=== PATIENT | female | born 1950 | race African-American/Black ===

== ENCOUNTER 2018-07-08 11:31 | Inpatient (IN) | payer OTHER ==
[~2018-07-08] VITALS: Ht 154.9 cm; Wt 73.0 kg
[2018-07-08] VITALS (11 sets, daily range): BP systolic 131–187; BP diastolic 56–103
[2018-07-08 12:04] LABS: HEMATOCRIT 24.7 % (37.0-47.0); HEMOGLOBIN 7.9 G/DL (12.0-16.0); MEAN CORPUSCULAR VOLUME 88 FL (80-99); PLATELET COUNT 276 K/UL (150-450); RED CELL DISTRIBUTION WIDTH 14.6 % (11.6-14.8); WHITE BLOOD COUNT 14.5 K/UL (4.8-10.8)
[2018-07-08 12:18] LABS: ANION GAP 11 mmol/L (5-15); BLOOD UREA NITROGEN 41 mg/dL (7-18); CALCIUM 8.4 MG/DL (8.5-10.1); CARBON DIOXIDE 22 MMOL/L (21-32); CHLORIDE 104 MMOL/L (98-107); CREATININE 3.7 MG/DL (0.55-1.30); POTASSIUM 4.6 MMOL/L (3.5-5.1); SODIUM 137 MMOL/L (136-145)
[2018-07-08 12:22] LABS: APPEARANCE,URINE CLEAR; BILIRUBIN, URINE NEGATIVE (NEGATIVE); COLOR,URINE PALE YELLOW; GLUCOSE, URINE (UA) 2+ (NEGATIVE); KETONES,URINE NEGATIVE (NEGATIVE); LEUKOCYTE ESTERASE ,URINE NEGATIVE (NEGATIVE); NITRITE,URINE NEGATIVE (NEGATIVE); PH,URINE 6.5 (4.5-8.0); PROTEIN,URINE 4+ (NEGATIVE); UROBILINOGEN,URINE NORMAL MG/DL (0.0-1.0)
[2018-07-08 12:32] LABS: ALANINE AMINOTRANSFERASE 14 U/L (12-78); ALBUMIN 2.3 G/DL (3.4-5.0); ALBUMIN/GLOBULIN RATIO 0.4 (1.0-2.7); ALKALINE PHOSPHATASE 96 U/L (46-116); ASPARTATE AMINO TRANSFERASE 21 U/L (15-37); BILIRUBIN,TOTAL 0.2 MG/DL (0.2-1.0); CKMB 10.5 NG/ML (0.0-3.6); CREATINE KINASE 325 U/L (26-308)
[2018-07-08] MEDS ORDERED: Nitroglycerin 2% oint pkt TOPIC ONE (12:45)
[2018-07-08] MEDS ORDERED: Albuterol ud Inhalation HHN ONE (12:45)
--- NOTE | 2018-07-08 15:43 | Emergency Room Report ---
History of Present Illness General Chief Complaint: Dyspnea/Respdistress Source: Patient, Family Member, Medical Record Present Illness HPI This patient states that she was diagnosed with congestive heart failure about a month ago. She complains of worsening dyspnea over the past couple days. She denies cough or congestion. She denies fever or chills. She denies chest pain. She also has a history of renal failure but has not started dialysis. She is on Lasix for CHF. She denies nausea or vomiting. She has no other complaints. Allergies: Coded Allergies: SULFA (SULFONAMIDE ANTIBIOTICS) (Unverified Allergy, Unknown, 07/08/18) Uncoded Allergies: SULFA (Allergy, Unknown, 07/08/18) Patient History Past Medical History: see triage record, DM, HTN, ID, CAD, CHF, GERD, renal disease, other - Lupus Social History: Denies: smoking, alcohol use, drug use Now: No Reviewed Nursing Documentation: PMH: Agreed; PSxH: Agreed Nursing Documentation-PMH Past Medical History: No History, Except For Hx Cardiac Problems: Yes - CHF, High cholesterol, Lupus, RA Hx Hypertension: Yes Hx Diabetes: Yes Hx Gastrointestinal Problems: Yes - GERD Review of Systems All Other Systems: negative except mentioned in HPI Physical Exam Vital Signs Date Time Temp Pulse Resp B/P (MAP) Pulse Ox O2 Delivery O2 Flow Rate FiO2 07/08/18 11:24 106 22 160/98 98 Non-Rebreather 15.0 07/08/18 11:40 98.0 07/08/18 11:40 100 Sp02 EP Interpretation: reviewed, normal General Appearance: no apparent distress, alert, GCS 15, non-toxic Head: normocephalic, atraumatic Eyes: bilateral eye normal inspection, bilateral eye PERRL ENT: hearing grossly normal, normal pharynx, no angioedema, normal voice Neck: full range of motion, supple/symm/no masses Respiratory: chest non-tender, lungs clear, normal breath sounds, no rhonchi, accessory muscle use, speaking full sentences, other - Tachypnea Cardiovascular #1: regular rate, rhythm, no edema Gastrointestinal: normal bowel sounds, non tender, soft, non-distended, no guarding, no rebound Rectal: deferred Musculoskeletal: back normal, gait/station normal, normal range of motion, non- tender Neurologic: alert, oriented x3, responsive, motor strength/tone normal, sensory intact, speech normal Psychiatric: judgement/insight normal, memory normal, mood/affect normal, no suicidal/homicidal ideation Skin: normal color, no rash, warm/dry, well hydrated Medical Decision Making Diagnostic Impression: Primary Impression: NSTEMI (non-ST elevated myocardial infarction) Additional Impressions: CHF exacerbation Hypoxemia Anemia ER Course This patient presents with CHF exacerbation. She was initially on a nonrebreather mask, then titrated down to a face mask. She was satting in the high 90s on the facemask but nasal cannula cause the patient to desaturate. Because of the desaturation on nasal cannula and the congestive heart failure, I did place the patient on BiPAP for relief of work of breathing and for the improvement in fluid shifts that occur on BiPAP in CHF exacerbations. The patient was very comfortable on BiPAP. Nitro paste was also placed on the chest wall and the patient was given Lasix IV. The patient's troponin was elevated and trended up during her ED course. This is consistent with an STEMI. The patient was placed on a heparin drip per standard protocol. I did hesitate placing this patient on a heparin drip secondary to her anemia, however , the patient has no history of GI bleed and denies black colored stool and likely the patient's anemia is related to chronic kidney disease and not a GI bleed. I felt the benefit outweighed the risk of placing this patient on heparin versus not. I discussed the case with a burrer hand Dr. Tobias. The patient will be admitted to the ICU. This patient is critically ill. This patient required complex medical decision- making, aggressive intervention, extensive laboratory workup and monitoring. Critical care time: 40 minutes. Laboratory Tests Test 07/08/18 11:50 07/08/18 12:10 07/08/18 14:25 White Blood Count 14.5 K/UL (4.8-10.8) H Red Blood Count 2.80 M/UL (4.20-5.40) L Hemoglobin 7.9 G/DL (12.0-16.0) L Hematocrit 24.7 % (37.0-47.0) L Mean Corpuscular Volume 88 FL (80-99) Mean Corpuscular Hemoglobin 28.3 PG (27.0-31.0) Mean Corpuscular Hemoglobin Concent 32.1 G/DL (32.0-36.0) Red Cell Distribution Width 14.6 % (11.6-14.8) Platelet Count 276 K/UL (150-450) Mean Platelet Volume 6.0 FL (6.5-10.1) L Neutrophils (%) (Auto) % (45.0-75.0) Lymphocytes (%) (Auto) % (20.0-45.0) Monocytes (%) (Auto) % (1.0-10.0) Eosinophils (%) (Auto) % (0.0-3.0) Basophils (%) (Auto) % (0.0-2.0) Differential Total Cells Counted 100 Neutrophils % (Manual) 83 % (45-75) H Lymphocytes % (Manual) 8 % (20-45) L Monocytes % (Manual) 6 % (1-10) Eosinophils % (Manual) 2 % (0-3) Basophils % (Manual) 0 % (0-2) Band Neutrophils 1 % (0-8) Platelet Estimate Adequate Platelet Morphology Normal Polychromasia 1+ Anisocytosis 1+ Prothrombin Time 10.4 SEC (9.30-11.50) Prothrombin Time INR 1.0 (0.9-1.1) PTT 24 SEC (23-33) Sodium Level 137 MMOL/L (136-145) Potassium Level 4.6 MMOL/L (3.5-5.1) Chloride Level 104 MMOL/L (98-107) Carbon Dioxide Level 22 MMOL/L (21-32) Anion Gap 11 mmol/L (5-15) Blood Urea Nitrogen 41 mg/dL (7-18) H Creatinine 3.7 MG/DL (0.55-1.30) H Estimate Glomerular Filtration Rate 12.2 mL/min (>60) Glucose Level 178 MG/DL (74-106) H Calcium Level 8.4 MG/DL (8.5-10.1) L Total Bilirubin 0.2 MG/DL (0.2-1.0) Aspartate Amino Transferase (AST) 21 U/L (15-37) Alanine Aminotransferase (ALT) 14 U/L (12-78) Alkaline Phosphatase 96 U/L (46-116) Total Creatine Kinase 325 U/L (26-308) H Creatine Kinase MB 10.5 NG/ML (0.0-3.6) H Creatine Kinase MB Relative Index 3.2 Troponin I 1.217 ng/mL (0.000-0.056) 1.416 ng/mL (0.000-0.056) Total Protein 8.0 G/DL (6.4-8.2) Albumin 2.3 G/DL (3.4-5.0) L Globulin 5.7 g/dL Albumin/Globulin Ratio 0.4 (1.0-2.7) L Urine Color Pale yellow Urine Appearance Clear Urine pH 6.5 (4.5-8.0) Urine Specific [place] 1.010 (1.005-1.035) Urine Protein 4+ (NEGATIVE) H Urine Glucose (UA) 2+ (NEGATIVE) H Urine Ketones Negative (NEGATIVE) Urine Blood 3+ (NEGATIVE) H Urine Nitrite Negative (NEGATIVE) Urine Bilirubin Negative (NEGATIVE) Urine Urobilinogen Normal MG/DL (0.0-1.0) Urine Leukocyte Esterase Negative (NEGATIVE) Urine RBC 2-4 /HPF (0 - 2) H Urine WBC 0-2 /HPF (0 - 2) Urine Squamous Epithelial Cells Few /LPF (NONE/OCC) Urine Bacteria Few /HPF (NONE) EKG Diagnostic Results Rate: normal Rhythm: NSR ST Segments: other Other Impression Lateral ST segment changes (1 box depression in V4, V5, V6, I, II) Rhythm Strip Diag. Results EP Interpretation: yes Rate: 70's Rhythm: NSR, no PVC's, no ectopy Chest X-Ray Diagnostic Results Chest X-Ray Diagnostic Results : Chest X-Ray Ordered: Yes # of Views/Limited/Complete: 1 View Indication: Shortness of Breath Interpretation: no effusion, no pneumothorax, other - Diffuse patchy opacities Impression: Other - See above Electronically Signed by: Watson Last Vital Signs Date Time Temp Pulse Resp B/P (MAP) Pulse Ox O2 Delivery O2 Flow Rate FiO2 07/08/18 15:13 83 17 Bi-pap 35 07/08/18 15:11 100 07/08/18 13:52 98.6 159/66 5.0 Status: improved Disposition: ADMITTED INPATIENT Condition: Critical Referrals: NON PHYSICIAN (PCP) Sharri Estrella DO Jul 08, 2018 15:43
[2018-07-08] MEDS ORDERED: Heparin 25,000u/D5W 500ml 500 ML IV SCH ×2 (15:45→20:30)
[2018-07-08] MEDS ORDERED: Heparin 5000 units/ml inj IV ONE (15:45)
--- NOTE | 2018-07-08 16:17 | Diagnostic Imaging Report ---
Indication: Shortness of breath Technique: One view of the chest Comparison: none Findings: The heart is enlarged. There is bilateral interstitial edema. There are probably small bilateral pleural effusions. Impression: Cardiomegaly Evidence of congestive heart failure, with bilateral interstitial edema and bilateral pleural effusions
--- NOTE | 2018-07-08 17:33 | Cardiology Progress Note ---
Assessment/Plan Assessment/Plan [id number] need treatemt of chf will donn need cardaic cath which likey will worsen her ezequiel l function will need to transfer to cath facility has anemia check stool as indicates some black stool recently family to [place] in lab form recent renal eval preload and after load reduction watch renal fucntion with diuretic echo repeat trop and ekg Objective Last 24 Hour Vital Signs Date Time Temp Pulse Resp B/P (MAP) Pulse Ox O2 Delivery O2 Flow Rate FiO2 07/08/18 16:39 98.5 77 16 163/58 100 Bi-pap 07/08/18 15:48 98.6 80 15 149/56 99 Bi-pap 5.0 35 07/08/18 15:41 98.5 80 18 166/73 99 Bi-pap 07/08/18 15:39 5.0 35 07/08/18 15:13 83 17 Bi-pap 35 07/08/18 15:11 83 17 100 Facial 35 07/08/18 13:52 98.6 80 19 159/66 98 Simple Mask 5.0 07/08/18 13:13 162/64 07/08/18 13:07 98.5 78 23 183/68 98 Simple Mask 5.0 07/08/18 12:41 173/62 07/08/18 11:40 77 24 Non-Rebreather 10.0 100 07/08/18 11:40 98.0 77 24 173/62 100 Non-Rebreather 10.0 07/08/18 11:24 106 22 160/98 98 Non-Rebreather 15.0 Laboratory Tests Test 07/08/18 11:50 07/08/18 12:10 07/08/18 14:25 White Blood Count 14.5 K/UL (4.8-10.8) H Red Blood Count 2.80 M/UL (4.20-5.40) L Hemoglobin 7.9 G/DL (12.0-16.0) L Hematocrit 24.7 % (37.0-47.0) L Mean Corpuscular Volume 88 FL (80-99) Mean Corpuscular Hemoglobin 28.3 PG (27.0-31.0) Mean Corpuscular Hemoglobin Concent 32.1 G/DL (32.0-36.0) Red Cell Distribution Width 14.6 % (11.6-14.8) Platelet Count 276 K/UL (150-450) Mean Platelet Volume 6.0 FL (6.5-10.1) L Neutrophils (%) (Auto) % (45.0-75.0) Lymphocytes (%) (Auto) % (20.0-45.0) Monocytes (%) (Auto) % (1.0-10.0) Eosinophils (%) (Auto) % (0.0-3.0) Basophils (%) (Auto) % (0.0-2.0) Differential Total Cells Counted 100 Neutrophils % (Manual) 83 % (45-75) H Lymphocytes % (Manual) 8 % (20-45) L Monocytes % (Manual) 6 % (1-10) Eosinophils % (Manual) 2 % (0-3) Basophils % (Manual) 0 % (0-2) Band Neutrophils 1 % (0-8) Platelet Estimate Adequate Platelet Morphology Normal Polychromasia 1+ Anisocytosis 1+ Prothrombin Time 10.4 SEC (9.30-11.50) Prothromb Time International Ratio 1.0 (0.9-1.1) Activated Partial Thromboplast Time 24 SEC (23-33) Sodium Level 137 MMOL/L (136-145) Potassium Level 4.6 MMOL/L (3.5-5.1) Chloride Level 104 MMOL/L (98-107) Carbon Dioxide Level 22 MMOL/L (21-32) Anion Gap 11 mmol/L (5-15) Blood Urea Nitrogen 41 mg/dL (7-18) H Creatinine 3.7 MG/DL (0.55-1.30) H Estimat Glomerular Filtration Rate 12.2 mL/min (>60) Glucose Level 178 MG/DL (74-106) H Calcium Level 8.4 MG/DL (8.5-10.1) L Total Bilirubin 0.2 MG/DL (0.2-1.0) Aspartate Amino Transf (AST/SGOT) 21 U/L (15-37) Alanine Aminotransferase (ALT/SGPT) 14 U/L (12-78) Alkaline Phosphatase 96 U/L (46-116) Total Creatine Kinase 325 U/L (26-308) H Creatine Kinase MB 10.5 NG/ML (0.0-3.6) H Creatine Kinase MB Relative Index 3.2 Troponin I 1.217 ng/mL (0.000-0.056) 1.416 ng/mL (0.000-0.056) Total Protein 8.0 G/DL (6.4-8.2) Albumin 2.3 G/DL (3.4-5.0) L Globulin 5.7 g/dL Albumin/Globulin Ratio 0.4 (1.0-2.7) L Urine Color Pale yellow Urine Appearance Clear Urine pH 6.5 (4.5-8.0) Urine Specific [place] 1.010 (1.005-1.035) Urine Protein 4+ (NEGATIVE) H Urine Glucose (UA) 2+ (NEGATIVE) H Urine Ketones Negative (NEGATIVE) Urine Blood 3+ (NEGATIVE) H Urine Nitrite Negative (NEGATIVE) Urine Bilirubin Negative (NEGATIVE) Urine Urobilinogen Normal MG/DL (0.0-1.0) Urine Leukocyte Esterase Negative (NEGATIVE) Urine RBC 2-4 /HPF (0 - 2) H Urine WBC 0-2 /HPF (0 - 2) Urine Squamous Epithelial Cells Few /LPF (NONE/OCC) Urine Bacteria Few /HPF (NONE) Andres Duffy MD Jul 08, 2018 17:33
[2018-07-08] MEDS ORDERED: Nitroglycerin Subl 0.4mg tab SL PRN (17:45)
[2018-07-08] MEDS: Carvedilol 12.5mg tab ORAL SCH (18:00)
[2018-07-08] MEDS ORDERED: Heparin 5000 units/ml inj IV SCH (20:30)
[2018-07-08] MEDS: NovoLOG Insulin Flexpen SUBQ SCH (20:51)
[2018-07-08] MEDS ORDERED: Atorvastatin 80mg tab ORAL SCH (21:00)
--- NOTE | 2018-07-08 23:30 | History and Physical Report ---
DATE OF ADMISSION: 07/08/2018 REASON FOR ADMISSION: Congestive heart failure. HISTORY OF PRESENT ILLNESS: This is a 68-year-old female with history of recent onset of heart failure. She has been short of breath for the last few days. She was seen in the ER and placed on BiPAP. She has also been diuresed. The patient has end-stage renal failure, but currently not on dialysis. The patient was seen in the ER and then subsequently by Cardiology. At this point, she is on BiPAP as well as diuresis. PAST MEDICAL HISTORY: Diabetes mellitus, hypertension, RI, CAD, CHF, GERD, ESRD as well as lupus. HOME MEDICATIONS: List of all medications reviewed and reconciled in the chart. She takes Lasix, lisinopril, Lipitor, insulin, Coreg, and Norvasc. ALLERGIES: Sulfa. REVIEW OF SYSTEMS: Denies any headaches, hematemesis, melena, or hematochezia. PHYSICAL EXAMINATION: GENERAL: Reveals a 68-year-old female. HEENT: Unremarkable. LUNGS: Shows decreased breath sounds bilaterally with bilateral crackles. ABDOMEN: Soft. EXTREMITIES: There is no peripheral edema. NEUROLOGIC: Nonfocal. LABORATORY AND DIAGNOSTIC DATA: X-ray of the chest shows evidence of pulmonary edema. Lab testing shows white count 14,000, hemoglobin 7.9, platelet count is normal. Troponin 1.2 followed by 1.4 and 3.3. Coags are negative. Urinalysis is negative. IMPRESSION: 1. Pulmonary edema. 2. History of CAD. 3. Troponin leak. 4. Non-STEMI. DISCUSSION: The patient will need diuresis as well as the patient was placed on BiPAP. Continue oxygen and pulmonary hygiene. We will keep n.p.o. for now. Heparin drip. We will discuss with Cardiology. Luan Gomez M.D. DR: FARA JOB#: [id number] CC:
--- NOTE | 2018-07-08 23:30 | Consultation ---
DATE OF CONSULTATION: 07/08/2018 CARDIOLOGY CONSULTATION CONSULTING PHYSICIAN: Andres Duffy M.D. REFERRING PHYSICIAN: Luan Gomez M.D. REASON FOR EVALUATION: Shortness of breath and chest pain. HISTORY OF PRESENT ILLNESS: This is a 68-year-old female with history of coronary disease, status post prior stenting in [place], who was diagnosed with congestive heart failure last month in May when she was hospitalized at [facility] and was supposed to have a stress test, but apparently she refused. She was sent home and not clear whether against medical advice. She has had recent upper respiratory tract symptoms and today got very short of breath and developed some pain in the chest, which she has not had recently to this degree. Usually, when she has chest pain, she takes a few deep breaths and the pain goes away. Today, this pain was not going away, so she called the paramedics. She was brought to the emergency room and was noted to have congestive heart failure and abnormal cardiac enzymes. She indicates because of her constipation, she has actually stopped taking her diuretics approximately [id number]-half days ago before her symptoms start. She does have orthopnea, [id number]-half pillow. There is no PND episode. She does have dizziness on standing. If she does walk fast, she has no palpitations. At the present time that I am seeing that she is already feeling better. Since she came into the emergency room, was given some diuretics and her chest pain has dissipated. PAST MEDICAL HISTORY: Positive for diabetes. She has a history of high blood pressure. She has had a possible heart attack when she was hospitalized at [facility] last month. She has congestive heart failure. She has coronary disease with 3 prior stents and chronic kidney disease. She has discoid lupus, diabetes mellitus, diabetic neuropathy, hypertension, hyperlipidemia, vitamin D deficiency, gastroesophageal reflux disease, cataracts, Mendoza palsy, and rheumatoid arthritis. MEDICATIONS: Prior to admission include Tylenol, aspirin 81 mg, bupropion 100 mg twice daily, vitamin D 50,000 per week, Coreg 25 mg 2 times daily, Crestor 20 mg, gabapentin 300 mg 3 times daily, and insulin KwikPen. She takes Lasix 40 mg twice daily, lisinopril 40 mg daily, Norvasc 10 mg daily, prazosin 1 mg at bedtime, and Zantac 150 mg every evening. ALLERGIES: She is allergic to sulfa based drugs. SOCIAL HISTORY: She does smoke occasionally now, but she has cut down. No alcohol. No drugs. She states she lives at home with her daughter. PHYSICAL EXAMINATION: GENERAL: Shows to be elderly female, in no respiratory distress, although she is on a face mask. NECK: Supple. No jugular venous distention. LUNGS: Appear to show crackles at both bases. CARDIAC: Regular rate and rhythm. No heaves, thrills, or gallops noted. ABDOMEN: Soft and nontender. Positive bowel sounds. Obese. EXTREMITIES: There is no clubbing, cyanosis, nor is there any edema. NEUROLOGICAL: She is awake, alert, responsive, and moves all four extremities. LABORATORY DATA: White count of 14.5, hemoglobin 7.9, and platelet count of 276,000. Sodium is 137, potassium 4.6, chloride 104, bicarb 41, creatinine 3.7, and glucose of 178. AST and ALT within normal limits. CK of 325. Troponin 1.217, subsequently 1.416. Albumin of 2.3. INR of 1. PTT of 24. Urinalysis fairly unremarkable. Chest x-ray performed in the emergency room interpreted by the radiologist had evidence of congestive heart failure, bilateral interstitial edema, and bilateral pleural effusions being noted. The patient's electrocardiogram shows sinus rhythm with ST-segment and T-wave changes in 1, aVL, V5, and V6, chronicity of which is unknown. ASSESSMENT: 1. Congestive heart failure, possibly acute on chronic systolic. 2. Chest pain. 3. Nlo-QT-kyrgsrdzm myocardial infarction. 4. Hypertension. 5. Chronic renal insufficiency. 6. Coronary disease, status post two prior stents. 7. Diabetes mellitus. 8. Hyperlipidemia. 9. Diabetic neuropathy. 10. Gastroesophageal reflux disease. 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 12. Rheumatoid arthritis. PLAN: Dr. Gomez, this patient was seen in cardiac consultation. The patient had recent hospitalization at [facility], unfortunately, did not accept to undergo stress testing at that time because of her kidney dysfunction. She is now with evidence of myocardial infarction. She required treatment of congestive heart failure with aspirin, anticoagulation with heparin for the time being, and statins, as well as beta-blockers, as well as possibly preload reduction with Isordil, afterload reduction with her usual medications as long as her creatinine allows. Likelihood, she will require cardiac catheterization based on her history and recent hospitalization for which she refused stress testing and this will probably lead to worsening of her renal function with a permanent or acute, needs time to tell. I have discussed these scenarios with the patient. She understands. We will see how she does over the next day or two. If she has chest pain, she may need to be transferred to accepting cardiac cath facility if she agrees to have a cardiac catheterization. Andres Duffy M.D. DR: MIHIR JOB#: [id number] CC:
[2018-07-09] VITALS (14 sets, daily range): BP systolic 134–166; BP diastolic 50–134
[2018-07-09 03:13] LABS: HEMATOCRIT 20.9 % (37.0-47.0); MEAN CORPUSCULAR VOLUME 87 FL (80-99); PLATELET COUNT 244 K/UL (150-450); RED CELL DISTRIBUTION WIDTH 14.2 % (11.6-14.8); WHITE BLOOD COUNT 8.3 K/UL (4.8-10.8)
[2018-07-09 03:27] LABS: HEMOGLOBIN 6.8 G/DL (12.0-16.0)
[2018-07-09 03:36] LABS: ALANINE AMINOTRANSFERASE 12 U/L (12-78); ALBUMIN 2.1 G/DL (3.4-5.0); ALBUMIN/GLOBULIN RATIO 0.4 (1.0-2.7); ALKALINE PHOSPHATASE 80 U/L (46-116); ANION GAP 9 mmol/L (5-15); ASPARTATE AMINO TRANSFERASE 21 U/L (15-37); BILIRUBIN,TOTAL 0.3 MG/DL (0.2-1.0); BLOOD UREA NITROGEN 40 mg/dL (7-18); CALCIUM 8.6 MG/DL (8.5-10.1); CARBON DIOXIDE 24 MMOL/L (21-32); CHLORIDE 106 MMOL/L (98-107); CHOLESTEROL 134 MG/DL (< 200); CREATININE 3.7 MG/DL (0.55-1.30); HDL CHOLESTEROL 51 MG/DL (40-60); POTASSIUM 4.3 MMOL/L (3.5-5.1); SODIUM 139 MMOL/L (136-145); TRIGLYCERIDES 192 MG/DL (30-150)
[2018-07-09] MEDS ORDERED: Heparin 5000 units/ml inj IV SCH (03:45)
[2018-07-09] MEDS ORDERED: Heparin 25,000u/D5W 500ml 500 ML IV SCH ×3 (03:45→13:48)
[2018-07-09 03:58] LABS: IRON 21 ug/dL (50-175)
[2018-07-09] MEDS: NovoLOG Insulin Flexpen SUBQ SCH ×5 (06:04→20:38)
[2018-07-09] MEDS ORDERED: Lisinopril 20mg tab ORAL SCH (09:00)
[2018-07-09] MEDS: Carvedilol 12.5mg tab ORAL SCH ×2 (09:07→20:36)
[2018-07-09] MEDS ORDERED: Heparin 2000 units/Ns 1000ml INJ PRN (10:00)
[2018-07-09] MEDS ORDERED: Lidocaine 1% Plain 30 ml INJ PRN (10:00)
[2018-07-09] MEDS ORDERED: VITAMIN D-32000 UNI1 PO (12:33)
[2018-07-09] MEDS ORDERED: BUPROPION HCL100 MG ORAL (12:33)
[2018-07-09] MEDS ORDERED: ASPIRIN81 M3 PO (12:33)
[2018-07-09] MEDS ORDERED: COREG25 MG ORAL (12:36)
[2018-07-09] MEDS ORDERED: FUROSEMIDE40 MG ORAL (12:40)
[2018-07-09] MEDS ORDERED: NORVASC10 MG ORAL (12:40)
[2018-07-09] MEDS ORDERED: ZANTAC150 MG ORAL (12:40)
[2018-07-09] MEDS ORDERED: CRESTOR20 MG ORAL (12:40)
[2018-07-09] MEDS ORDERED: PRAZOSIN HCL1 MG PO (12:40)
[2018-07-09] MEDS ORDERED: LISINOPRIL20 MG ORAL (12:40)
[2018-07-09] MEDS ORDERED: CLOBETASOL EMOL15 GM TP (12:41)
--- NOTE | 2018-07-09 14:01 | Pulmonology Progress Note ---
Assessment/Plan Assessment/Plan IMPRESSION: 1. Pulmonary edema. 2. History of CAD. 3. Troponin leak. 4. Non-STEMI. 5. Anemia and black st DISCUSSION: no longer on BiPAP. Continue oxygen and pulmonary hygiene. GI consultation requested Seen by cardiology She reports noncompliance with Lasix at home I will DC heparin drip given anemia. Subjective Interval Events: reporting black stools; hemoglobin drop noted Constitutional: Reports: no symptoms HEENT: Repors: no symptoms Respiratory: Reports: no symptoms Cardiovascular: Reports: no symptoms Gastrointestinal/Abdominal: Reports: no symptoms Genitourinary: Reports: no symptoms Neurologic: Reports: no symptoms Allergies: Coded Allergies: SULFA (SULFONAMIDE ANTIBIOTICS) (Unverified Allergy, Unknown, 07/08/18) Uncoded Allergies: SULFA (Allergy, Unknown, 07/08/18) Objective Last 24 Hour Vital Signs Date Time Temp Pulse Resp B/P (MAP) Pulse Ox O2 Delivery O2 Flow Rate FiO2 07/09/18 12:00 70 07/09/18 12:00 Nasal Cannula 2.0 07/09/18 12:00 97.7 70 21 147/63 (91) 99 07/09/18 10:49 76 16 100 07/09/18 10:00 74 21 150/70 (96) 100 07/09/18 09:07 81 166/134 07/09/18 09:07 166/134 07/09/18 09:07 81 166/134 07/09/18 09:00 79 22 166/134 (145) 100 07/09/18 08:51 89 18 99 07/09/18 08:00 Venturi Mask 07/09/18 08:00 69 07/09/18 08:00 98.6 75 19 150/50 (83) 100 07/09/18 07:13 74 18 100 07/09/18 07:00 73 19 134/58 (83) 100 07/09/18 06:00 80 22 161/69 (99) 100 07/09/18 05:12 87 19 100 07/09/18 05:00 79 22 159/57 (91) 94 07/09/18 05:00 164/53 07/09/18 04:00 98.9 88 19 164/53 (90) 97 07/09/18 04:00 Bi-pap 07/09/18 04:00 5.0 35 07/09/18 04:00 92 07/09/18 03:23 73 25 99 Facial 35 07/09/18 03:00 68 22 153/70 (97) 99 07/09/18 02:00 69 22 156/56 (89) 100 07/09/18 01:24 69 20 100 Facial 35 07/09/18 01:00 71 16 151/53 (85) 100 07/09/18 00:00 5.0 35 07/09/18 00:00 72 07/09/18 00:00 Bi-pap 07/09/18 00:00 99.4 67 23 153/55 (87) 98 07/08/18 23:30 67 19 99 Facial 35 07/08/18 23:00 66 22 180/66 (104) 100 07/08/18 22:00 70 18 147/57 (87) 100 07/08/18 21:30 68 18 Bi-pap 35 07/08/18 21:30 69 18 100 Facial 35 07/08/18 21:00 69 16 131/103 (112) 100 07/08/18 20:00 5.0 35 07/08/18 20:00 Bi-pap 07/08/18 20:00 98.5 67 20 166/81 (109) 100 07/08/18 20:00 67 07/08/18 19:30 67 16 100 Facial 35 07/08/18 19:30 68 18 Bi-pap 35 07/08/18 19:17 Bi-pap 07/08/18 19:00 97.0 78 19 187/75 (112) 100 07/08/18 18:49 Bi-pap 07/08/18 18:42 Bi-pap 07/08/18 18:00 75 187/75 07/08/18 18:00 75 187/75 07/08/18 17:25 92 28 95 Facial 35 07/08/18 16:39 98.5 77 16 163/58 100 Bi-pap 07/08/18 15:48 98.6 80 15 149/56 99 Bi-pap 5.0 35 07/08/18 15:41 98.5 80 18 166/73 99 Bi-pap 07/08/18 15:39 5.0 35 07/08/18 15:13 83 17 Bi-pap 35 07/08/18 15:11 83 17 100 Facial 35 Intake and Output 07/08/18 07/09/18 19:00 07:00 Intake Total 54.54 ml 219.866 ml Output Total 300 ml 2000 ml Balance -245.46 ml -1780.134 ml IV Total 54.54 ml 219.866 ml Output Urine Total 300 ml 2000 ml # Voids 3 3 General Appearance: no acute distress HEENT: normocephalic Respiratory/Chest: chest wall non-tender, lungs clear Abdomen: normal bowel sounds, soft, non tender Laboratory Tests 07/08/18 14:25: Troponin I 1.416H 07/08/18 18:50: Troponin I 3.341H, Activated Partial Thromboplast Time 58H 07/09/18 01:33: Troponin I 3.375H 07/09/18 03:04: Activated Partial Thromboplast Time 63H, White Blood Count 8.3, Red Blood Count 2.40L, Hemoglobin 6.8*L, Hematocrit 20.9L, Mean Corpuscular Volume 87, Mean Corpuscular Hemoglobin 28.2, Mean Corpuscular Hemoglobin Concent 32.5, Red Cell Distribution Width 14.2, Platelet Count 244, Mean Platelet Volume 6.0L, Neutrophils (%) (Auto) , Lymphocytes (%) (Auto) , Monocytes (%) (Auto) , Eosinophils (%) (Auto) , Basophils (%) (Auto) , Sodium Level 139, Potassium Level 4.3, Chloride Level 106, Carbon Dioxide Level 24, Anion Gap 9, Blood Urea Nitrogen 40H, Creatinine 3.7H, Estimat Glomerular Filtration Rate 14.8, Glucose Level 106, Calcium Level 8.6, Iron Level 21L, Total Bilirubin 0.3, Aspartate Amino Transf (AST/SGOT) 21, Alanine Aminotransferase (ALT/SGPT) 12, Alkaline Phosphatase 80, Pro-B-Type Natriuretic Peptide [id number], Total Protein 7.4, Albumin 2.1L, Globulin 5.3, Albumin/Globulin Ratio 0.4L, Triglycerides Level 192H, Cholesterol Level 134, LDL Cholesterol 59, HDL Cholesterol 51, Cholesterol /HDL Ratio 2.6L 07/09/18 09:05: Activated Partial Thromboplast Time 100H, Troponin I 1.901H Current Medications Medications (Trade) Dose Ordered Sig/Robin Route PRN Reason Start Time Stop Time Status Last Admin Dose Admin Acetaminophen (Tylenol) 650 mg Q6H PRN ORAL Mild Pain/Temp > 100.5 07/09/18 13:48 08/08/18 13:47 Amlodipine Besylate (Norvasc) 10 mg DAILY ORAL 07/10/18 09:00 08/07/18 17:59 Atorvastatin Calcium (Lipitor) 80 mg BEDTIME ORAL 07/09/18 21:00 08/07/18 20:59 Carvedilol (Coreg) 12.5 mg EVERY 12 HOURS ORAL 07/09/18 21:00 08/07/18 17:59 Dextrose (Dextrose 50%) 25 ml Q30M PRN IV Hypoglycemia 07/09/18 13:49 08/07/18 13:48 Dextrose (Dextrose 50%) 50 ml Q30M PRN IV Hypoglycemia 07/09/18 13:49 08/07/18 13:48 Furosemide (Lasix) 40 mg EVERY 12 HOURS IV 07/09/18 21:00 07/12/18 21:00 Furosemide (Lasix) 40 mg ONCE PRN IV AFTER RBC 07/09/18 14:00 07/09/18 23:59 Gabapentin (Neurontin) 300 mg THREE TIMES A DAY ORAL 07/09/18 18:00 08/08/18 12:59 Heparin Sodium/ Dextrose 500 ml @ 21 mls/hr ADJUST PER PROTOCOL IV 07/09/18 13:48 08/08/18 13:47 Insulin Aspart (NovoLOG) BEFORE MEALS AND HS SUBQ 07/09/18 16:30 08/07/18 20:59 Lisinopril (Prinivil) 20 mg DAILY ORAL 07/10/18 09:00 08/08/18 08:59 Nitroglycerin (Ntg) 0.4 mg Q5M PRN SL Prn Chest Pain 07/09/18 13:45 08/07/18 17:44 Luan Gomez MD Jul 09, 2018 14:01
--- NOTE | 2018-07-09 14:58 | Cardiology Report ---
APPROVED REPORT EXAM: Two-dimensional and M-mode echocardiogram with Doppler and color Doppler. INDICATION Chest Pain M-Mode DIMENSIONS IVSd1.4 (0.7-1.1cm)Left Atrium (MM)3.1 (1.6-4.0cm) LVDd5.6 (3.5-5.6cm)Aortic Root2.7 (2.0-3.7cm) PWd1.4 (0.7-1.1cm)Aortic Cusp Exc.1.7 (1.5-2.0cm) IVSs2.0 cm LVDs4.2 (2.5-4.0cm) PWs1.6 cm Normal left ventricular chamber size, systolic function and wall motion. Left ventricular ejection fraction estimated to be 50-55%. No evidence of left ventricular hypertrophy. No evidence of pericardial effusion. All other cardiac chamber sizes are within normal limits. Focal aortic valve sclerosis with adequate cusp excursion. Mildly Thickened mitral valve leaflets with normal excursion. pulmonic valve not well visualized. Normal tricuspid valve structure. IVC at normal size with physiologic collapse. A color flow and spectral Doppler study was performed and revealed: No aortic regurgitation. Mild mitral regurgitation. Mitral diastolic velocities suggest reduced left ventricular relaxation c/w mild LV diastolic dysfunction (Grade I ). Mild tricuspid regurgitation. Tricuspid systolic velocities suggests peak right ventricular systolic pressure of 50mmHg,consistent with moderate pulmonary hypertension.
--- NOTE | 2018-07-09 19:18 | General Progress Note ---
Assessment/Plan Assessment/Plan Assessment - Melena - anemia - CHF - CAD - NSTMI - HTN - Hyperlipidemia - DM - GERD - DLE - CRI Recommendations - NPO after MND - Cardiology approval for EGD - PPI - EGD in am - Serial CBC - Transfuse PRN - Guarded Thank you Sam Lopez MD Subjective Allergies: Coded Allergies: SULFA (SULFONAMIDE ANTIBIOTICS) (Unverified Allergy, Unknown, 07/08/18) Uncoded Allergies: SULFA (Allergy, Unknown, 07/08/18) Objective Last 24 Hour Vital Signs Date Time Temp Pulse Resp B/P (MAP) Pulse Ox O2 Delivery O2 Flow Rate FiO2 07/09/18 16:00 71 07/09/18 16:00 99.3 97 18 139/78 (98) 98 07/09/18 16:00 Nasal Cannula 2.0 07/09/18 15:24 74 16 99 07/09/18 13:02 83 18 100 07/09/18 12:00 70 07/09/18 12:00 Nasal Cannula 2.0 07/09/18 12:00 97.7 70 21 147/63 (91) 99 07/09/18 10:49 76 16 100 07/09/18 10:00 74 21 150/70 (96) 100 07/09/18 09:07 81 166/134 07/09/18 09:07 166/134 07/09/18 09:07 81 166/134 07/09/18 09:00 79 22 166/134 (145) 100 07/09/18 08:51 89 18 99 07/09/18 08:00 Venturi Mask 07/09/18 08:00 69 07/09/18 08:00 98.6 75 19 150/50 (83) 100 07/09/18 07:13 74 18 100 07/09/18 07:00 73 19 134/58 (83) 100 07/09/18 06:00 80 22 161/69 (99) 100 07/09/18 05:12 87 19 100 07/09/18 05:00 79 22 159/57 (91) 94 07/09/18 05:00 164/53 07/09/18 04:00 98.9 88 19 164/53 (90) 97 07/09/18 04:00 Bi-pap 07/09/18 04:00 5.0 35 07/09/18 04:00 92 07/09/18 03:23 73 25 99 Facial 35 07/09/18 03:00 68 22 153/70 (97) 99 07/09/18 02:00 69 22 156/56 (89) 100 07/09/18 01:24 69 20 100 Facial 35 07/09/18 01:00 71 16 151/53 (85) 100 07/09/18 00:00 5.0 35 07/09/18 00:00 72 07/09/18 00:00 Bi-pap 07/09/18 00:00 99.4 67 23 153/55 (87) 98 07/08/18 23:30 67 19 99 Facial 35 07/08/18 23:00 66 22 180/66 (104) 100 07/08/18 22:00 70 18 147/57 (87) 100 07/08/18 21:30 68 18 Bi-pap 35 07/08/18 21:30 69 18 100 Facial 35 07/08/18 21:00 69 16 131/103 (112) 100 07/08/18 20:00 5.0 35 07/08/18 20:00 Bi-pap 07/08/18 20:00 98.5 67 20 166/81 (109) 100 07/08/18 20:00 67 07/08/18 19:30 67 16 100 Facial 35 07/08/18 19:30 68 18 Bi-pap 35 Intake and Output 07/08/18 07/09/18 19:00 07:00 Intake Total 54.54 ml 219.866 ml Output Total 300 ml 2000 ml Balance -245.46 ml -1780.134 ml IV Total 54.54 ml 219.866 ml Output Urine Total 300 ml 2000 ml # Voids 3 3 Laboratory Tests 07/09/18 01:33: Troponin I 3.375H 07/09/18 03:04: White Blood Count 8.3, Red Blood Count 2.40L, Hemoglobin 6.8*L, Hematocrit 20.9L , Mean Corpuscular Volume 87, Mean Corpuscular Hemoglobin 28.2, Mean Corpuscular Hemoglobin Concent 32.5, Red Cell Distribution Width 14.2, Platelet Count 244, Mean Platelet Volume 6.0L, Neutrophils (%) (Auto) , Lymphocytes (%) ( Auto) , Monocytes (%) (Auto) , Eosinophils (%) (Auto) , Basophils (%) (Auto) , Activated Partial Thromboplast Time 63H, Sodium Level 139, Potassium Level 4.3, Chloride Level 106, Carbon Dioxide Level 24, Anion Gap 9, Blood Urea Nitrogen 40H, Creatinine 3.7H, Estimat Glomerular Filtration Rate 14.8, Glucose Level 106 , Calcium Level 8.6, Iron Level 21L, Total Bilirubin 0.3, Aspartate Amino Transf (AST/SGOT) 21, Alanine Aminotransferase (ALT/SGPT) 12, Alkaline Phosphatase 80, Pro-B-Type Natriuretic Peptide 89946V, Total Protein 7.4, Albumin 2.1L, Globulin 5.3, Albumin/Globulin Ratio 0.4L, Triglycerides Level 192H, Cholesterol Level 134, LDL Cholesterol 59, HDL Cholesterol 51, Cholesterol /HDL Ratio 2.6L 07/09/18 09:05: Troponin I 1.901H, Activated Partial Thromboplast Time 100H Height (Feet): 5 Height (Inches): 1.00 Weight (Pounds): 165 Sam Lopez MD Jul 09, 2018 19:18
--- NOTE | 2018-07-09 19:56 | Cardiology Progress Note ---
Assessment/Plan Assessment/Plan 1. Congestive heart failure, diastolic 2. Chest pain. 3. Xld-QO-wldgpdlhe myocardial infarction. 4. Hypertension. 5. Chronic renal insufficiency. 6. Coronary disease, status post two prior stents. 7. Diabetes mellitus. 8. Hyperlipidemia. 9. Diabetic neuropathy. 10. Gastroesophageal reflux disease. 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 12. Rheumatoid arthritis 13. anemia 14. possible gi bleed echo showed adequate ef with some puilm htn trop peak now radha down trend s/p 2 unite of prbc tx will need gi [place] if suspected gib as cannot treat her heart as long as has gi bleeding , it is likely that her anemia may be at least partl;y contributing to the cause of her nstemi, so indicated to have endoscopy as needed if still has cp with higher hgb will need cath bp control but would not be too aggressive for now ekg noted off heparin in light of anemia s/p transfusion heparin sc Subjective Cardiovascular: Reports: chest pain - earlier today resolved with ntg Respiratory: Reports: shortness of breath - better Gastrointestinal/Abdominal: Denies: abdomen distended Genitourinary: Denies: no symptoms, burning Objective Last 24 Hour Vital Signs Date Time Temp Pulse Resp B/P (MAP) Pulse Ox O2 Delivery O2 Flow Rate FiO2 07/09/18 16:00 71 07/09/18 16:00 99.3 97 18 139/78 (98) 98 07/09/18 16:00 Nasal Cannula 2.0 07/09/18 15:24 74 16 99 07/09/18 13:02 83 18 100 07/09/18 12:00 70 07/09/18 12:00 Nasal Cannula 2.0 07/09/18 12:00 97.7 70 21 147/63 (91) 99 07/09/18 10:49 76 16 100 07/09/18 10:00 74 21 150/70 (96) 100 07/09/18 09:07 81 166/134 07/09/18 09:07 166/134 07/09/18 09:07 81 166/134 07/09/18 09:00 79 22 166/134 (145) 100 07/09/18 08:51 89 18 99 07/09/18 08:00 Venturi Mask 07/09/18 08:00 69 07/09/18 08:00 98.6 75 19 150/50 (83) 100 07/09/18 07:13 74 18 100 07/09/18 07:00 73 19 134/58 (83) 100 07/09/18 06:00 80 22 161/69 (99) 100 07/09/18 05:12 87 19 100 07/09/18 05:00 79 22 159/57 (91) 94 07/09/18 05:00 164/53 07/09/18 04:00 98.9 88 19 164/53 (90) 97 07/09/18 04:00 Bi-pap 07/09/18 04:00 5.0 35 07/09/18 04:00 92 07/09/18 03:23 73 25 99 Facial 35 07/09/18 03:00 68 22 153/70 (97) 99 07/09/18 02:00 69 22 156/56 (89) 100 07/09/18 01:24 69 20 100 Facial 35 07/09/18 01:00 71 16 151/53 (85) 100 07/09/18 00:00 5.0 35 07/09/18 00:00 72 07/09/18 00:00 Bi-pap 07/09/18 00:00 99.4 67 23 153/55 (87) 98 07/08/18 23:30 67 19 99 Facial 35 07/08/18 23:00 66 22 180/66 (104) 100 07/08/18 22:00 70 18 147/57 (87) 100 07/08/18 21:30 68 18 Bi-pap 35 07/08/18 21:30 69 18 100 Facial 35 07/08/18 21:00 69 16 131/103 (112) 100 07/08/18 20:00 5.0 35 07/08/18 20:00 Bi-pap 07/08/18 20:00 98.5 67 20 166/81 (109) 100 07/08/18 20:00 67 General Appearance: no apparent distress, alert Neck: supple Cardiovascular: normal rate Respiratory/Chest: crackles/rales - few at base Abdomen: normal bowel sounds, non tender, soft Extremities: no swelling Intake and Output 07/08/18 07/09/18 19:00 07:00 Intake Total 54.54 ml 219.866 ml Output Total 300 ml 2000 ml Balance -245.46 ml -1780.134 ml IV Total 54.54 ml 219.866 ml Output Urine Total 300 ml 2000 ml # Voids 3 3 Laboratory Tests Test 07/09/18 01:33 07/09/18 03:04 07/09/18 09:05 Troponin I 3.375 ng/mL (0.000-0.056) 1.901 ng/mL (0.000-0.056) White Blood Count 8.3 K/UL (4.8-10.8) Red Blood Count 2.40 M/UL (4.20-5.40) L Hemoglobin 6.8 G/DL (12.0-16.0) *L Hematocrit 20.9 % (37.0-47.0) L Mean Corpuscular Volume 87 FL (80-99) Mean Corpuscular Hemoglobin 28.2 PG (27.0-31.0) Mean Corpuscular Hemoglobin Concent 32.5 G/DL (32.0-36.0) Red Cell Distribution Width 14.2 % (11.6-14.8) Platelet Count 244 K/UL (150-450) Mean Platelet Volume 6.0 FL (6.5-10.1) L Neutrophils (%) (Auto) % (45.0-75.0) Lymphocytes (%) (Auto) % (20.0-45.0) Monocytes (%) (Auto) % (1.0-10.0) Eosinophils (%) (Auto) % (0.0-3.0) Basophils (%) (Auto) % (0.0-2.0) Activated Partial Thromboplast Time 63 SEC (23-33) H 100 SEC (23-33) H Sodium Level 139 MMOL/L (136-145) Potassium Level 4.3 MMOL/L (3.5-5.1) Chloride Level 106 MMOL/L (98-107) Carbon Dioxide Level 24 MMOL/L (21-32) Anion Gap 9 mmol/L (5-15) Blood Urea Nitrogen 40 mg/dL (7-18) H Creatinine 3.7 MG/DL (0.55-1.30) H Estimat Glomerular Filtration Rate 14.8 mL/min (>60) Glucose Level 106 MG/DL (74-106) Calcium Level 8.6 MG/DL (8.5-10.1) Iron Level 21 ug/dL (50-175) L Total Bilirubin 0.3 MG/DL (0.2-1.0) Aspartate Amino Transf (AST/SGOT) 21 U/L (15-37) Alanine Aminotransferase (ALT/SGPT) 12 U/L (12-78) Alkaline Phosphatase 80 U/L (46-116) Pro-B-Type Natriuretic Peptide 15313 pg/mL (0-125) H Total Protein 7.4 G/DL (6.4-8.2) Albumin 2.1 G/DL (3.4-5.0) L Globulin 5.3 g/dL Albumin/Globulin Ratio 0.4 (1.0-2.7) L Triglycerides Level 192 MG/DL (30-150) H Cholesterol Level 134 MG/DL (< 200) LDL Cholesterol 59 mg/dL (<100) HDL Cholesterol 51 MG/DL (40-60) Cholesterol/HDL Ratio 2.6 (3.3-4.4) L Andres Duffy MD Jul 09, 2018 19:56
[2018-07-09] MEDS ORDERED: Dyna-Hex 2% Top Sol 2oz TOPIC SCH (20:00)
[2018-07-09] MEDS: Atorvastatin 80mg tab ORAL SCH (20:37)
[2018-07-10] VITALS (8 sets, daily range): BP systolic 141–171; BP diastolic 67–78
[2018-07-10] MEDS: Pantoprazole Inj IVP SCH ×3 (00:12→21:12)
--- NOTE | 2018-07-10 03:45 | Consultation ---
DATE OF CONSULTATION: 07/09/2018 GASTROENTEROLOGY CONSULTATION CHIEF COMPLAINT: I was asked to see this patient by Dr. Luan Gomez for evaluation of gastrointestinal bleeding. HISTORY OF PRESENT ILLNESS: The patient is a pleasant 68-year-old, woman with significant degree of cardiac disease, who comes into the hospital due to shortness of breath for a few days prior to admission. She was seen in the emergency room and placed on BiPAP mask. In addition, she was admitted to the ICU, but then subsequently transferred to direct observation unit. She has been seen by Cardiology and has been diagnosed with multiple issues including congestive heart failure and acute okq-EC-tjbdcer myocardial infarction. She was placed on intravenous heparin due to her acute heart issues, but subsequently had black stools and drop in hematocrit. The heparin was therefore discontinued and the patient has been transfused. Cardiology consultation has been requested in this issue and the patient will be scheduled for endoscopy on an urgent basis due to her melena and the fact that her anticoagulation has to be discontinued. She may require cardiac catheterization. Endoscopy can be done to know the source of nature of her upper gastrointestinal bleeding. The patient does have a longstanding history of pyrosis and occasional lower abdominal pain. She has never had endoscopy, but thinks she may have had a colonoscopy about five years ago, which was negative. PAST MEDICAL HISTORY: History of congestive heart failure; history of end-stage renal disease, but now on dialysis; diabetes mellitus; hypertension; myocardial infarction; gastroesophageal reflux disease; and discoid lupus. ALLERGIES: Sulfa. FAMILY HISTORY: Positive for lung cancer in brother. SOCIAL HISTORY: The patient is . She previously smoked heavy, but she stopped about a month ago. She does not drink alcohol. MEDICATIONS: See chart for details. REVIEW OF SYSTEMS: Otherwise negative. PHYSICAL EXAMINATION: GENERAL: This is a pleasant woman, seen in her room. HEENT: Normocephalic and atraumatic. Sclerae anicteric. Oropharynx clear. NECK: Supple. CHEST: Clear to auscultation. CARDIOVASCULAR: Revealed regular rate. ABDOMEN: Soft. EXTREMITIES: Revealed no edema. LABORATORY DATA: Noted. ASSESSMENT: 1. The patient presents with acute upper gastrointestinal bleeding with significant complicated cardiac issues and she cannot be anticoagulated effectively. The patient will therefore undergo endoscopy tomorrow to evaluate the nature and source of her upper gastrointestinal bleeding. 2. The procedure, risks, alternatives, and possible complications were explained to the patient and informed consent was obtained. RECOMMENDATIONS: 1. Keep the patient NPO. 2. Proton pump inhibitor. 3. We will hold heparin. 4. Endoscopy tomorrow. Thank you for asking me to participate in the care of this patient. Sam Lopez M.D. DR: SO JOB#: [id number] CC:
[2018-07-10 05:11] LABS: BASOPHILS % (AUTO) 0.5 % (0.0-2.0); EOSINOPHILS % (AUTO) 1.4 % (0.0-3.0); HEMATOCRIT 29.2 % (37.0-47.0); HEMOGLOBIN 10.4 G/DL (12.0-16.0); LYMPHOCYTES % (AUTO) 12.6 % (20.0-45.0); MEAN CORPUSCULAR VOLUME 86 FL (80-99); MONOCYTES % (AUTO) 8.5 % (1.0-10.0); PLATELET COUNT 245 K/UL (150-450); RED BLOOD COUNT 3.41 M/UL (4.20-5.40); RED CELL DISTRIBUTION WIDTH 13.7 % (11.6-14.8); WHITE BLOOD COUNT 8.6 K/UL (4.8-10.8)
[2018-07-10 05:35] LABS: ANION GAP 11 mmol/L (5-15); BLOOD UREA NITROGEN 37 mg/dL (7-18); CALCIUM 8.9 MG/DL (8.5-10.1); CARBON DIOXIDE 24 MMOL/L (21-32); CHLORIDE 105 MMOL/L (98-107); CREATININE 3.6 MG/DL (0.55-1.30); POTASSIUM 3.6 MMOL/L (3.5-5.1); SODIUM 140 MMOL/L (136-145)
[2018-07-10] MEDS ORDERED: Atropine Inj 1mg/10ml Syr IV PRN (06:30)
[2018-07-10] MEDS: NovoLOG Insulin Flexpen SUBQ SCH ×4 (06:30→21:14)
[2018-07-10] MEDS ORDERED: Midazolam 2mg/2ml Inj IVP PRN (06:30)
[2018-07-10] MEDS ORDERED: fentaNYL 100 mcg/2 mL IV PRN (06:30)
[2018-07-10] MEDS ORDERED: DiphenhydrAMINE 50mg/ml Inj IVP PRN (06:30)
--- NOTE | 2018-07-10 06:34 | Anethesia Preoperative Eval ---
Anesthesia Pre-op PMH/ROS General Date of Evaluation: Jul 10, 2018 Time of Evaluation: 06:31 Anesthesiologist: malik ASA Score: ASA 4 Mallampati Score Class I : Soft palate, uvula, fauces, pillars visible Class II: Soft palate, uvula, fauces visible Class III: Soft palate, base of uvula visible Class IV: Only hard plate visible Mallampati Classification: Class II Surgeon: reinier Diagnosis: gi bleed Surgical Procedure: egd Anesthesia History: none Social History: smoking - former Family History: no anesthesia problems Allergies: Coded Allergies: SULFA (SULFONAMIDE ANTIBIOTICS) (Unverified Allergy, Unknown, 07/08/18) Uncoded Allergies: SULFA (Allergy, Unknown, 07/08/18) Medications: see eMAR Patient NPO?: Yes Past Medical History Cardiovascular: Reports: HTN, MD, other - chf Pulmonary: Reports: other - bipap use Gastrointestinal/Genitourinary: Reports: GERD, ESRD, other - gi bleed, Endocrine: Reports: DM Hematology/Immune: Reports: other - discoid lupus Musculoskeletal/Integumentary: Reports: RA Anesthesia Pre-op Phys. Exam Physician Exam Last Vital Signs Date Time Temp Pulse Resp B/P (MAP) Pulse Ox O2 Delivery O2 Flow Rate FiO2 07/10/18 04:00 69 07/10/18 04:00 Nasal Cannula 2.0 07/10/18 04:00 98.2 18 147/69 (95) 92 07/09/18 19:30 28 Constitutional: NAD Neurologic: CN 2-12 intact Cardiovascular: RRR Respiratory: CTA Gastrointestinal: S/NT/ND Airway Exam Mallampati Score: Class II MO: full Neck: short TMD: 2fb ROM: limited Teeth: missing Anesthesia Pre-op A/P Labs Hematology Test 07/10/18 03:05 White Blood Count 8.6 K/UL (4.8-10.8) Red Blood Count 3.41 M/UL (4.20-5.40) L Hemoglobin 10.4 G/DL (12.0-16.0) #L Hematocrit 29.2 % (37.0-47.0) #L Mean Corpuscular Volume 86 FL (80-99) Mean Corpuscular Hemoglobin 30.6 PG (27.0-31.0) Mean Corpuscular Hemoglobin Concent 35.7 G/DL (32.0-36.0) Red Cell Distribution Width 13.7 % (11.6-14.8) Platelet Count 245 K/UL (150-450) Mean Platelet Volume 6.0 FL (6.5-10.1) L Neutrophils (%) (Auto) 77.0 % (45.0-75.0) H Lymphocytes (%) (Auto) 12.6 % (20.0-45.0) L Monocytes (%) (Auto) 8.5 % (1.0-10.0) Eosinophils (%) (Auto) 1.4 % (0.0-3.0) Basophils (%) (Auto) 0.5 % (0.0-2.0) Coagulation Test 07/09/18 09:05 Activated Partial Thromboplast Time 100 SEC (23-33) H Chemistry Test 07/09/18 09:05 07/10/18 03:05 Troponin I 1.901 ng/mL (0.000-0.056) Sodium Level 140 MMOL/L (136-145) Potassium Level 3.6 MMOL/L (3.5-5.1) Chloride Level 105 MMOL/L (98-107) Carbon Dioxide Level 24 MMOL/L (21-32) Anion Gap 11 mmol/L (5-15) Blood Urea Nitrogen 37 mg/dL (7-18) H Creatinine 3.6 MG/DL (0.55-1.30) H Estimat Glomerular Filtration Rate 15.3 mL/min (>60) Glucose Level 78 MG/DL (74-106) Calcium Level 8.9 MG/DL (8.5-10.1) Risk Assessment & Plan Assessment: asa4 Plan: mac Status Change Before Surgery: No Pre-Antibiotics Drug: Isabella Guzman MD Jul 10, 2018 06:34
[2018-07-10] MEDS ORDERED: Propofol 200mg/20ml IV ONE (07:30)
[2018-07-10] MEDS ORDERED: Lidocaine 1% MPF 10mg/ml 5ml ONE (07:30)
[2018-07-10] MEDS ORDERED: NS 500ML IVPB ONE (07:48)
--- NOTE | 2018-07-10 07:53 | General Progress Note ---
Assessment/Plan Assessment/Plan Assessment - Melena - anemia - CHF - CAD - NSTMI - HTN - Hyperlipidemia - DM - GERD - DLE - CRI Recommendations - NPO for EGD - Cardiology f/u - PPI - Serial CBC - Transfuse PRN - Guarded Subjective Allergies: Coded Allergies: SULFA (SULFONAMIDE ANTIBIOTICS) (Unverified Allergy, Unknown, 07/08/18) Uncoded Allergies: SULFA (Allergy, Unknown, 07/08/18) Subjective Feels OK NPO for EGD cardiology noted scheduled for EGD this am Objective Last 24 Hour Vital Signs Date Time Temp Pulse Resp B/P (MAP) Pulse Ox O2 Delivery O2 Flow Rate FiO2 07/10/18 04:00 69 07/10/18 04:00 Nasal Cannula 2.0 07/10/18 04:00 98.2 68 18 147/69 (95) 92 07/10/18 01:04 175/76 07/10/18 00:00 Nasal Cannula 2.0 07/10/18 00:00 68 07/10/18 00:00 98.1 70 18 171/74 (106) 94 07/09/18 20:36 78 155/78 07/09/18 20:00 Nasal Cannula 2.0 07/09/18 20:00 98.6 80 17 150/65 (93) 95 07/09/18 20:00 80 07/09/18 19:30 79 18 96 2.0 28 07/09/18 16:00 71 07/09/18 16:00 99.3 97 18 139/78 (98) 98 07/09/18 16:00 Nasal Cannula 2.0 07/09/18 15:24 74 16 99 07/09/18 13:02 83 18 100 07/09/18 12:00 70 07/09/18 12:00 Nasal Cannula 2.0 07/09/18 12:00 97.7 70 21 147/63 (91) 99 07/09/18 10:49 76 16 100 07/09/18 10:00 74 21 150/70 (96) 100 07/09/18 09:07 81 166/134 07/09/18 09:07 166/134 07/09/18 09:07 81 166/134 07/09/18 09:00 79 22 166/134 (145) 100 07/09/18 08:51 89 18 99 07/09/18 08:00 Venturi Mask 07/09/18 08:00 69 07/09/18 08:00 98.6 75 19 150/50 (83) 100 Intake and Output 07/09/18 07/10/18 18:59 06:59 Intake Total 743.285 ml 480 ml Output Total 500 ml Balance 243.285 ml 480 ml Intake Oral 400 ml 480 ml IV Total 93.285 ml Blood Product 250 ml Output Urine Total 500 ml # Voids 3 Laboratory Tests 07/09/18 09:05: Activated Partial Thromboplast Time 100H, Troponin I 1.901H 07/10/18 03:05: White Blood Count 8.6, Red Blood Count 3.41L, Hemoglobin 10.4#L, Hematocrit 29.2 #L, Mean Corpuscular Volume 86, Mean Corpuscular Hemoglobin 30.6, Mean Corpuscular Hemoglobin Concent 35.7, Red Cell Distribution Width 13.7, Platelet Count 245, Mean Platelet Volume 6.0L, Neutrophils (%) (Auto) 77.0H, Lymphocytes (%) (Auto) 12.6L, Monocytes (%) (Auto) 8.5, Eosinophils (%) (Auto) 1.4, Basophils (%) (Auto) 0.5, Sodium Level 140, Potassium Level 3.6, Chloride Level 105, Carbon Dioxide Level 24, Anion Gap 11, Blood Urea Nitrogen 37H, Creatinine 3.6H, Estimat Glomerular Filtration Rate 15.3, Glucose Level 78, Calcium Level 8.9 Height (Feet): 5 Height (Inches): 1.00 Weight (Pounds): 149 Objective WDWN AA woman NCAT supple CTA RR abd soft no edema Sam Lopez MD Jul 10, 2018 07:53
--- NOTE | 2018-07-10 07:54 | Pre-Procedure Note/Attestation ---
Pre-Procedure Note/Attestation Complete Prior to Procedure Planned Procedure: not applicable Procedure Narrative: EGD Indications for Procedure Pre-Operative Diagnosis: GIB Attestation I attest that I discussed the nature of the procedure; its benefits; risks and complications; and alternatives (and the risks and benefits of such alternatives ), prior to the procedure, with the patient (or the patient's legal field representative/health education). I attest that, if there was a reasonable possibility of needing a blood transfusion, the patient (or the patient's legal field representative/health education) was given the [facility] standardized written summary, pursuant to the [place] Blood Safety Act ([place] Health and Safety Code # 1645, as amended). I attest that I re-evaluated the patient just prior to the surgery and that there has been no change in the patient's H&P, except as documented below: Sam Lopez MD Jul 10, 2018 07:53
[2018-07-10] MEDS ORDERED: Sorbitol Solution UD 30ml ORAL SCH (08:08)
--- NOTE | 2018-07-10 08:15 | Endoscopy Procedure Note ---
Endoscopy Procedure Note General Indication for Procedure: GIB Procedures Performed: EGD Operative Findings/Diagnosis: HHx3-4 cm, mild linear ELISABETH erythema Specimen: none Pt Tolerated Procedure Well: Yes Estimated Blood Loss: none Anesthesia Anesthesiologist: Keyon Quiles Anesthesia: MAC Medications Medication Given: see anesthesia record Inserted Devices Implant(s) used?: No GI Core Measures 50 yrs or older w/o bx or poly: Not Applicable 10yrs. F/U not recommended: Not Applicable If not recommended, why?: Sam Lopez MD Jul 10, 2018 08:15
--- NOTE | 2018-07-10 08:17 | Brief Operative Note ---
Immediate Post Operative Note Operative Note Chief Complaint: GIB Pre-op Diagnosis: GIB Procedure: EGD Post-op Diagnosis: HH, ELISABETH Surgeon: reinier Anesthesiologist: Jerome Conrad Anesthesia: MAC Specimen: yes Complications: none Condition: stable Fluids: give Estimated Blood Loss: none Drains: none Implant(s) used?: No Sam Lopez MD Jul 10, 2018 08:17
[2018-07-10] MEDS: Carvedilol 12.5mg tab ORAL SCH ×2 (09:26→21:11)
[2018-07-10] MEDS: Nitroglycerin Subl 0.4mg tab SL PRN ×2 (09:26→21:58)
[2018-07-10] MEDS: Lisinopril 20mg tab ORAL SCH (09:28)
--- NOTE | 2018-07-10 10:23 | Diagnostic Imaging Report ---
APPROVED REPORT CPT Code: 10224 Present Symptoms Shortness of breath BILATERAL: Imaging reveals a patent deep venous system bilaterally. There is no evidence of thrombus within the femoral, popliteal or tibial segments. The greater saphenous veins are also within normal limits. Doppler indicates normal spontaneous flow within these segments.
[2018-07-10 14:42] LABS: BASOPHILS % (AUTO) 0.7 % (0.0-2.0); EOSINOPHILS % (AUTO) 1.7 % (0.0-3.0); HEMATOCRIT 31.7 % (37.0-47.0); HEMOGLOBIN 10.4 G/DL (12.0-16.0); MEAN CORPUSCULAR VOLUME 86 FL (80-99); MONOCYTES % (AUTO) 8.8 % (1.0-10.0); NEUTROPHILS % (AUTO) 76.7 % (45.0-75.0); PLATELET COUNT 266 K/UL (150-450); RED BLOOD COUNT 3.67 M/UL (4.20-5.40); RED CELL DISTRIBUTION WIDTH 13.6 % (11.6-14.8); WHITE BLOOD COUNT 7.8 K/UL (4.8-10.8)
--- NOTE | 2018-07-10 15:41 | Immediate Post-Op Evaluation ---
Immediate Post-Op Evalulation Immediate Post-Op Evalulation Procedure: egd Date of Evaluation: Jul 10, 2018 Time of Evaluation: 08:24 IV Fluids: 100ml 0.9ns Blood Products: none Estimated Blood Loss: negligible Blood Pressure Systolic: 146 Blood Pressure Diastolic: 77 Pulse Rate: 65 Respiratory Rate: 18 O2 Sat by Pulse Oximetry: 96 Temperature (Fahrenheit): 98.5 Pain Score (1-10): 0 Nausea: No Vomiting: No Complications none Patient Status: awake, reacts, patent Hydration Status: adequate Drug: Isabella Guzman MD Jul 10, 2018 15:41
--- NOTE | 2018-07-10 15:43 | 48 Hour Post Anesthesia Eval ---
Post Anesthesia Evaluation Procedure: egd Date of Evaluation: Jul 10, 2018 Time of Evaluation: 08:26 Blood Pressure Systolic: 147 0: 78 Pulse Rate: 65 Respiratory Rate: 18 Temperature (Fahrenheit): 98.5 O2 Sat by Pulse Oximetry: 97 Airway: patent Nausea: No Vomiting: No Pain Intensity: 0 Hydration Status: adequate Cardiopulmonary Status: stable Mental Status/LOC: patient returned to baseline Post-Anesthesia Complications: none Follow-up care needed: N/A Isabella Marti MD Jul 10, 2018 15:43
--- NOTE | 2018-07-10 15:45 | Pulmonology Progress Note ---
Assessment/Plan Assessment/Plan IMPRESSION: 1. Pulmonary edema. 2. History of CAD. 3. Troponin leak. 4. Non-STEMI. 5. Anemia and black stools DISCUSSION: no longer on BiPAP. Continue oxygen and pulmonary hygiene. GI consultation noted; has negative EGD Seen by cardiology She reports noncompliance with Lasix at home Foloow Hgb Subjective Interval Events: S/p EGD; feeling well Constitutional: Reports: no symptoms HEENT: Repors: no symptoms Respiratory: Reports: no symptoms Cardiovascular: Reports: no symptoms Gastrointestinal/Abdominal: Reports: no symptoms Genitourinary: Reports: no symptoms Neurologic: Reports: no symptoms Allergies: Coded Allergies: SULFA (SULFONAMIDE ANTIBIOTICS) (Unverified Allergy, Unknown, 07/08/18) Uncoded Allergies: SULFA (Allergy, Unknown, 07/08/18) Objective Last 24 Hour Vital Signs Date Time Temp Pulse Resp B/P (MAP) Pulse Ox O2 Delivery O2 Flow Rate FiO2 07/10/18 15:43 65 18 97 07/10/18 15:41 65 18 96 07/10/18 12:00 67 07/10/18 12:00 Nasal Cannula 2.0 07/10/18 09:28 144/76 07/10/18 09:27 63 144/76 07/10/18 09:26 144/76 07/10/18 09:26 63 144/76 07/10/18 08:30 98.0 63 18 144/76 96 Nasal Cannula 3 63 07/10/18 08:20 63 17 147/78 96 Nasal Cannula 3 63 07/10/18 08:15 61 17 149/78 96 Nasal Cannula 3 61 07/10/18 08:12 98.5 65 18 146/77 96 Nasal Cannula 3 65 07/10/18 08:00 Nasal Cannula 2.0 07/10/18 08:00 66 07/10/18 08:00 97.7 67 21 141/69 (93) 94 07/10/18 04:00 69 07/10/18 04:00 Nasal Cannula 2.0 07/10/18 04:00 98.2 68 18 147/69 (95) 92 07/10/18 01:04 175/76 07/10/18 00:00 Nasal Cannula 2.0 07/10/18 00:00 68 07/10/18 00:00 98.1 70 18 171/74 (106) 94 07/09/18 20:36 78 155/78 07/09/18 20:00 Nasal Cannula 2.0 07/09/18 20:00 98.6 80 17 150/65 (93) 95 07/09/18 20:00 80 07/09/18 19:30 79 18 96 2.0 28 07/09/18 16:00 71 07/09/18 16:00 99.3 97 18 139/78 (98) 98 07/09/18 16:00 Nasal Cannula 2.0 Intake and Output 07/09/18 07/10/18 19:00 07:00 Intake Total 719.190 ml 480 ml Output Total 500 ml Balance 219.190 ml 480 ml Intake Oral 400 ml 480 ml IV Total 69.190 ml Blood Product 250 ml Output Urine Total 500 ml # Voids 3 General Appearance: no acute distress HEENT: normocephalic Respiratory/Chest: chest wall non-tender, lungs clear Cardiovascular: normal peripheral pulses, normal rate Abdomen: normal bowel sounds Microbiology Date/Time Source Procedure Growth Status 07/08/18 11:50 Blood Blood Culture - Preliminary NO GROWTH AFTER 24 HOURS Resulted 07/08/18 11:50 Blood Blood Culture - Preliminary NO GROWTH AFTER 24 HOURS Resulted Laboratory Tests 07/10/18 03:05: White Blood Count 8.6, Red Blood Count 3.41L, Hemoglobin 10.4#L, Hematocrit 29.2 #L, Mean Corpuscular Volume 86, Mean Corpuscular Hemoglobin 30.6, Mean Corpuscular Hemoglobin Concent 35.7, Red Cell Distribution Width 13.7, Platelet Count 245, Mean Platelet Volume 6.0L, Neutrophils (%) (Auto) 77.0H, Lymphocytes (%) (Auto) 12.6L, Monocytes (%) (Auto) 8.5, Eosinophils (%) (Auto) 1.4, Basophils (%) (Auto) 0.5, Sodium Level 140, Potassium Level 3.6, Chloride Level 105, Carbon Dioxide Level 24, Anion Gap 11, Blood Urea Nitrogen 37H, Creatinine 3.6H, Estimat Glomerular Filtration Rate 15.3, Glucose Level 78, Calcium Level 8.9 07/10/18 10:29: Stool Occult Blood Negative 07/10/18 12:50: Arterial Blood pH 7.370, Arterial Blood Partial Pressure CO2 37.5, Arterial Blood Partial Pressure O2 58.4L, Arterial Blood HCO3 21.4L, Arterial Blood Oxygen Saturation 87.6*L, Arterial Blood Base Excess -3.4L, Desean Test Positive 07/10/18 14:05: White Blood Count 7.8, Red Blood Count 3.67L, Hemoglobin 10.4L, Hematocrit 31.7L , Mean Corpuscular Volume 86, Mean Corpuscular Hemoglobin 28.4, Mean Corpuscular Hemoglobin Concent 33.0, Red Cell Distribution Width 13.6, Platelet Count 266, Mean Platelet Volume 6.4L, Neutrophils (%) (Auto) 76.7H, Lymphocytes (%) (Auto) 12.0L, Monocytes (%) (Auto) 8.8, Eosinophils (%) (Auto) 1.7, Basophils (%) (Auto) 0.7 Current Medications Medications (Trade) Dose Ordered Sig/Robin Route PRN Reason Start Time Stop Time Status Last Admin Dose Admin Acetaminophen (Tylenol) 650 mg Q6H PRN ORAL Mild Pain/Temp > 100.5 07/09/18 13:48 08/08/18 13:47 07/10/18 13:43 Amlodipine Besylate (Norvasc) 10 mg DAILY ORAL 07/10/18 09:00 08/07/18 17:59 07/10/18 09:27 Atorvastatin Calcium (Lipitor) 80 mg BEDTIME ORAL 07/09/18 21:00 08/07/18 20:59 07/09/18 20:37 Carvedilol (Coreg) 12.5 mg EVERY 12 HOURS ORAL 07/09/18 21:00 08/07/18 17:59 07/10/18 09:26 Clonidine HCl (Catapres Tab) 0.1 mg Q6HR PRN ORAL For High Blood Pressure 07/10/18 00:40 08/09/18 00:39 07/10/18 01:04 Dextrose (Dextrose 50%) 25 ml Q30M PRN IV Hypoglycemia 07/09/18 13:49 08/07/18 13:48 Dextrose (Dextrose 50%) 50 ml Q30M PRN IV Hypoglycemia 07/09/18 13:49 08/07/18 13:48 Furosemide (Lasix) 40 mg EVERY 12 HOURS IV 07/09/18 21:00 07/12/18 21:00 07/10/18 09:27 Gabapentin (Neurontin) 300 mg THREE TIMES A DAY ORAL 07/09/18 18:00 08/08/18 12:59 07/10/18 12:07 Insulin Aspart (NovoLOG) BEFORE MEALS AND HS SUBQ 07/09/18 16:30 08/07/18 20:59 07/10/18 12:05 Lisinopril (Prinivil) 20 mg DAILY ORAL 07/10/18 09:00 08/08/18 08:59 07/10/18 09:28 Nitroglycerin (Ntg) 0.4 mg Q5M PRN SL Prn Chest Pain 07/09/18 13:45 08/07/18 17:44 07/10/18 09:26 Pantoprazole (Protonix) 40 mg EVERY 12 HOURS IVP 07/10/18 00:05 08/09/18 00:04 07/10/18 09:26 Luan Gomez MD Jul 10, 2018 15:45
--- NOTE | 2018-07-10 17:15 | Operative Note - Dictated ---
DATE OF OPERATION: 07/10/2018 GASTROENTEROLOGY PROCEDURE REPORT PROCEDURE: Upper gastrointestinal endoscopy. SURGEON: Sam Lopez M.D. ANESTHESIA: Please see the separate anesthesiologist's notes for details. PRE-ENDOSCOPIC DIAGNOSIS: Melena. POST-ENDOSCOPIC DIAGNOSES: 1. Incidental 3-4 cm hiatal hernia. 2. Minimal linear erythema in the lower esophagus because of mild reflux. 3. No evidence of ulcerations or other lesions to explain gastrointestinal bleeding. RECOMMENDATIONS: 1. Clear-liquid diet. 2. Check for gastrointestinal bleeding. 3. Consider colonoscopy to evaluate the lower GI tract. Sam Lopez M.D. DR: Hina JOB#: [id number] CC:
--- NOTE | 2018-07-10 17:51 | Cardiology Report ---
APPROVED REPORT EKG Measurement Heart [id number] [place] [id number] Normal sinus rhythm Marked ST abnormality, possible inferior subendocardial injury Abnormal ECG
--- NOTE | 2018-07-10 17:57 | Cardiology Report ---
APPROVED REPORT EKG Measurement Heart [id number] [place] 146P59 [id number] Normal sinus rhythm Abnormal ECG
--- NOTE | 2018-07-10 18:00 | Cardiology Report ---
APPROVED REPORT EKG Measurement Heart [id number] [place] 138P44 [id number] Normal sinus rhythm Abnormal ECG
--- NOTE | 2018-07-10 20:36 | General Progress Note ---
Assessment/Plan Assessment/Plan Assessment - No melena - stools brown - anemia, but OB (-) stools - CHF - CAD - NSTMI - HTN - Hyperlipidemia - DM - GERD - DLE - CRI Recommendations - colonoscopy cancelled - cardiac diet - OK to anticoagulate - Cardiology f/u - PPI - Serial CBC - Transfuse PRN - Guarded Subjective Allergies: Coded Allergies: SULFA (SULFONAMIDE ANTIBIOTICS) (Unverified Allergy, Unknown, 07/08/18) Uncoded Allergies: SULFA (Allergy, Unknown, 07/08/18) Subjective Feels OK d/w patient re EGD result initially planned for colonoscopy tomorrow subsequently RN reported brown, not black , and heme (-) stools colonoscopy cancelled discussed with cardiology - can restart anticoagulation and proceed with coronary w/u Objective Last 24 Hour Vital Signs Date Time Temp Pulse Resp B/P (MAP) Pulse Ox O2 Delivery O2 Flow Rate FiO2 07/10/18 20:00 Nasal Cannula 2.0 28 07/10/18 20:00 69 18 Nasal Cannula 2.0 28 07/10/18 20:00 97 Nasal Cannula 2.0 28 07/10/18 16:00 Nasal Cannula 2.0 07/10/18 16:00 65 07/10/18 15:43 65 18 97 07/10/18 15:41 65 18 96 07/10/18 12:00 67 07/10/18 12:00 Nasal Cannula 2.0 07/10/18 09:28 144/76 07/10/18 09:27 63 144/76 07/10/18 09:26 144/76 07/10/18 09:26 63 144/76 07/10/18 08:30 98.0 63 18 144/76 96 Nasal Cannula 3 63 07/10/18 08:20 63 17 147/78 96 Nasal Cannula 3 63 07/10/18 08:15 61 17 149/78 96 Nasal Cannula 3 61 07/10/18 08:12 98.5 65 18 146/77 96 Nasal Cannula 3 65 07/10/18 08:00 Nasal Cannula 2.0 07/10/18 08:00 66 07/10/18 08:00 97.7 67 21 141/69 (93) 94 07/10/18 04:00 69 07/10/18 04:00 Nasal Cannula 2.0 07/10/18 04:00 98.2 68 18 147/69 (95) 92 07/10/18 01:04 175/76 07/10/18 00:00 Nasal Cannula 2.0 07/10/18 00:00 68 07/10/18 00:00 98.1 70 18 171/74 (106) 94 07/09/18 20:36 78 155/78 Intake and Output 07/09/18 07/10/18 19:00 07:00 Intake Total 719.190 ml 480 ml Output Total 500 ml Balance 219.190 ml 480 ml Intake Oral 400 ml 480 ml IV Total 69.190 ml Blood Product 250 ml Output Urine Total 500 ml # Voids 3 Laboratory Tests 07/10/18 03:05: White Blood Count 8.6, Red Blood Count 3.41L, Hemoglobin 10.4#L, Hematocrit 29.2 #L, Mean Corpuscular Volume 86, Mean Corpuscular Hemoglobin 30.6, Mean Corpuscular Hemoglobin Concent 35.7, Red Cell Distribution Width 13.7, Platelet Count 245, Mean Platelet Volume 6.0L, Neutrophils (%) (Auto) 77.0H, Lymphocytes (%) (Auto) 12.6L, Monocytes (%) (Auto) 8.5, Eosinophils (%) (Auto) 1.4, Basophils (%) (Auto) 0.5, Sodium Level 140, Potassium Level 3.6, Chloride Level 105, Carbon Dioxide Level 24, Anion Gap 11, Blood Urea Nitrogen 37H, Creatinine 3.6H, Estimat Glomerular Filtration Rate 15.3, Glucose Level 78, Calcium Level 8.9 07/10/18 10:29: Stool Occult Blood Negative 07/10/18 12:50: Arterial Blood pH 7.370, Arterial Blood Partial Pressure CO2 37.5, Arterial Blood Partial Pressure O2 58.4L, Arterial Blood HCO3 21.4L, Arterial Blood Oxygen Saturation 87.6*L, Arterial Blood Base Excess -3.4L, Desean Test Positive 07/10/18 14:05: White Blood Count 7.8, Red Blood Count 3.67L, Hemoglobin 10.4L, Hematocrit 31.7L , Mean Corpuscular Volume 86, Mean Corpuscular Hemoglobin 28.4, Mean Corpuscular Hemoglobin Concent 33.0, Red Cell Distribution Width 13.6, Platelet Count 266, Mean Platelet Volume 6.4L, Neutrophils (%) (Auto) 76.7H, Lymphocytes (%) (Auto) 12.0L, Monocytes (%) (Auto) 8.8, Eosinophils (%) (Auto) 1.7, Basophils (%) (Auto) 0.7 Height (Feet): 5 Height (Inches): 1.00 Weight (Pounds): 149 Objective WDWN AA woman NCAT supple CTA RR abd soft no edema Sam Lopez MD Jul 10, 2018 20:36
[2018-07-10] MEDS: Atorvastatin 80mg tab ORAL SCH (21:11)
--- NOTE | 2018-07-10 21:55 | Cardiology Progress Note ---
Assessment/Plan Assessment/Plan 1. Congestive heart failure, diastolic 2. Chest pain. 3. Bwc-CR-[id number] myocardial infarction. 4. Hypertension. 5. Chronic renal insufficiency. 6. Coronary disease, status post two prior stents. 7. Diabetes mellitus. 8. Hyperlipidemia. 9. Diabetic neuropathy. 10. Gastroesophageal reflux disease. 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 12. Rheumatoid arthritis 13. anemia 14. possible gi bleed echo showed adequate ef with some puilm htn trop peak now radha down trend s/p 2 unite of prbc tx bp control but would not be too aggressive for now ekg noted off heparin in light of anemia d/w dr hills egd was neg stool ob no pland for colonoscopy d/w pt and dtr she declines cardiac cath i have explained possibility of alrger mi with risk of sob and otther complicaion of even if a large vessel disease is not identified or treated she inndicated understanding and still does not wich to have cath done is on bb: coreg and isordil hydralazien adn acei will need to be on lasix 40-80 mg po daily if not desire cath then no need for further hospitalization Subjective Cardiovascular: Denies: chest pain, irregular heart rate, lightheadedness Respiratory: Denies: shortness of breath Gastrointestinal/Abdominal: Denies: abdominal pain Genitourinary: Denies: burning Objective Last 24 Hour Vital Signs Date Time Temp Pulse Resp B/P (MAP) Pulse Ox O2 Delivery O2 Flow Rate FiO2 07/10/18 21:11 70 155/67 07/10/18 20:00 Nasal Cannula 2.0 28 07/10/18 20:00 69 18 Nasal Cannula 2.0 07/10/18 20:00 97 Nasal Cannula 2.0 28 07/10/18 16:00 Nasal Cannula 2.0 07/10/18 16:00 65 07/10/18 15:43 65 18 97 07/10/18 15:41 65 18 96 07/10/18 12:00 67 07/10/18 12:00 Nasal Cannula 2.0 07/10/18 09:28 144/76 07/10/18 09:27 63 144/76 07/10/18 09:26 144/76 07/10/18 09:26 63 144/76 07/10/18 08:30 98.0 63 18 144/76 96 Nasal Cannula 3 63 07/10/18 08:20 63 17 147/78 96 Nasal Cannula 3 63 07/10/18 08:15 61 17 149/78 96 Nasal Cannula 3 61 07/10/18 08:12 98.5 65 18 146/77 96 Nasal Cannula 3 65 07/10/18 08:00 Nasal Cannula 2.0 07/10/18 08:00 66 07/10/18 08:00 97.7 67 21 141/69 (93) 94 07/10/18 04:00 69 07/10/18 04:00 Nasal Cannula 2.0 07/10/18 04:00 98.2 68 18 147/69 (95) 92 07/10/18 01:04 175/76 07/10/18 00:00 Nasal Cannula 2.0 07/10/18 00:00 68 07/10/18 00:00 98.1 70 18 171/74 (106) 94 General Appearance: no apparent distress, alert Neck: supple Cardiovascular: normal rate Respiratory/Chest: lungs clear Abdomen: normal bowel sounds, non tender, soft Extremities: no swelling Intake and Output 07/09/18 07/10/18 18:59 06:59 Intake Total 743.285 ml 480 ml Output Total 500 ml Balance 243.285 ml 480 ml Intake Oral 400 ml 480 ml IV Total 93.285 ml Blood Product 250 ml Output Urine Total 500 ml # Voids 3 Laboratory Tests Test 07/10/18 03:05 07/10/18 10:29 07/10/18 12:50 07/10/18 14:05 White Blood Count 8.6 K/UL (4.8-10.8) 7.8 K/UL (4.8-10.8) Red Blood Count 3.41 M/UL (4.20-5.40) L 3.67 M/UL (4.20-5.40) L Hemoglobin 10.4 G/DL (12.0-16.0) #L 10.4 G/DL (12.0-16.0) L Hematocrit 29.2 % (37.0-47.0) #L 31.7 % (37.0-47.0) L Mean Corpuscular Volume 86 FL (80-99) 86 FL (80-99) Mean Corpuscular Hemoglobin 30.6 PG (27.0-31.0) 28.4 PG (27.0-31.0) Mean Corpuscular Hemoglobin Concent 35.7 G/DL (32.0-36.0) 33.0 G/DL (32.0-36.0) Red Cell Distribution Width 13.7 % (11.6-14.8) 13.6 % (11.6-14.8) Platelet Count 245 K/UL (150-450) 266 K/UL (150-450) Mean Platelet Volume 6.0 FL (6.5-10.1) L 6.4 FL (6.5-10.1) L Neutrophils (%) (Auto) 77.0 % (45.0-75.0) H 76.7 % (45.0-75.0) H Lymphocytes (%) (Auto) 12.6 % (20.0-45.0) L 12.0 % (20.0-45.0) L Monocytes (%) (Auto) 8.5 % (1.0-10.0) 8.8 % (1.0-10.0) Eosinophils (%) (Auto) 1.4 % (0.0-3.0) 1.7 % (0.0-3.0) Basophils (%) (Auto) 0.5 % (0.0-2.0) 0.7 % (0.0-2.0) Sodium Level 140 MMOL/L (136-145) Potassium Level 3.6 MMOL/L (3.5-5.1) Chloride Level 105 MMOL/L (98-107) Carbon Dioxide Level 24 MMOL/L (21-32) Anion Gap 11 mmol/L (5-15) Blood Urea Nitrogen 37 mg/dL (7-18) H Creatinine 3.6 MG/DL (0.55-1.30) H Estimat Glomerular Filtration Rate 15.3 mL/min (>60) Glucose Level 78 MG/DL (74-106) Calcium Level 8.9 MG/DL (8.5-10.1) Stool Occult Blood Negative (NEGATIVE) Arterial Blood pH 7.370 (7.350-7.450) Arterial Blood Partial Pressure CO2 37.5 mmHg (35.0-45.0) Arterial Blood Partial Pressure O2 58.4 mmHg (75.0-100.0) L Arterial Blood HCO3 21.4 mmol/L (22.0-26.0) L Arterial Blood Oxygen Saturation 87.6 % (95-100) *L Arterial Blood Base Excess -3.4 (-2-2) L Desean Test Positive Microbiology Date/Time Source Procedure Growth Status 07/08/18 11:50 Blood Blood Culture - Preliminary NO GROWTH AFTER 24 HOURS Resulted 07/08/18 11:50 Blood Blood Culture - Preliminary NO GROWTH AFTER 24 HOURS Resulted Andres Duffy MD Jul 10, 2018 21:55
[2018-07-11 05:00] LABS: BASOPHILS % (AUTO) 0.5 % (0.0-2.0); EOSINOPHILS % (AUTO) 1.7 % (0.0-3.0); HEMATOCRIT 29.7 % (37.0-47.0); MEAN CORPUSCULAR VOLUME 86 FL (80-99); MONOCYTES % (AUTO) 7.8 % (1.0-10.0); PLATELET COUNT 230 K/UL (150-450); RED BLOOD COUNT 3.46 M/UL (4.20-5.40); RED CELL DISTRIBUTION WIDTH 13.5 % (11.6-14.8); WHITE BLOOD COUNT 7.9 K/UL (4.8-10.8)
[2018-07-11 05:27] LABS: ANION GAP 10 mmol/L (5-15); BLOOD UREA NITROGEN 34 mg/dL (7-18); CALCIUM 8.4 MG/DL (8.5-10.1); CARBON DIOXIDE 23 MMOL/L (21-32); CHLORIDE 106 MMOL/L (98-107); CREATININE 3.5 MG/DL (0.55-1.30); POTASSIUM 3.3 MMOL/L (3.5-5.1); SODIUM 139 MMOL/L (136-145)
[2018-07-11] MEDS: NovoLOG Insulin Flexpen SUBQ SCH ×4 (06:40→20:16)
[2018-07-11 08:00] VITALS: BP 139/69
[2018-07-11 09:00] VITALS: BP 154/64
[2018-07-11] MEDS: Pantoprazole Inj IVP SCH ×2 (09:18→20:14)
[2018-07-11] MEDS: Carvedilol 12.5mg tab ORAL SCH ×2 (09:19→20:15)
[2018-07-11] MEDS: Lisinopril 20mg tab ORAL SCH (09:19)
--- NOTE | 2018-07-11 12:59 | Pulmonology Progress Note ---
Assessment/Plan Assessment/Plan IMPRESSION: 1. Pulmonary edema. 2. History of CAD. 3. Troponin leak. 4. Non-STEMI. 5. Anemia and black stools; EGD negative DISCUSSION: no longer on BiPAP. Continue oxygen and pulmonary hygiene. GI consultation noted; has negative EGD Seen by cardiology She reports noncompliance with Lasix at home Follow Hgb discharge planning for home tomorrow morning Subjective Interval Events: feeling better. Hemoglobin stable Constitutional: Reports: no symptoms HEENT: Repors: no symptoms Respiratory: Reports: no symptoms Cardiovascular: Reports: no symptoms Genitourinary: Reports: no symptoms Allergies: Coded Allergies: SULFA (SULFONAMIDE ANTIBIOTICS) (Unverified Allergy, Unknown, 07/08/18) Uncoded Allergies: SULFA (Allergy, Unknown, 07/08/18) Objective Last 24 Hour Vital Signs Date Time Temp Pulse Resp B/P (MAP) Pulse Ox O2 Delivery O2 Flow Rate FiO2 07/11/18 12:05 Nasal Cannula 2.0 07/11/18 09:19 139/69 07/11/18 09:19 72 139/69 07/11/18 09:19 72 139/69 07/11/18 09:00 97.9 63 21 154/64 (94) 95 07/11/18 08:15 96 Nasal Cannula 2.0 28 07/11/18 08:15 72 18 Nasal Cannula 2.0 28 07/11/18 08:15 Nasal Cannula 2.0 28 07/11/18 08:00 Nasal Cannula 2.0 07/11/18 08:00 97.9 69 21 139/69 (92) 07/11/18 08:00 67 07/11/18 04:00 65 07/11/18 04:00 Nasal Cannula 2.0 07/11/18 00:00 Nasal Cannula 2.0 07/11/18 00:00 69 07/10/18 21:58 151/69 07/10/18 21:11 70 155/67 07/10/18 21:00 97.7 70 18 155/67 (96) 95 07/10/18 20:00 69 07/10/18 20:00 Nasal Cannula 2.0 28 07/10/18 20:00 69 18 Nasal Cannula 2.0 28 07/10/18 20:00 97 Nasal Cannula 2.0 28 11/28/18 20:00 Nasal Cannula 2.0 07/10/18 16:00 Nasal Cannula 2.0 07/10/18 16:00 65 07/10/18 15:43 65 18 97 07/10/18 15:41 65 18 96 Intake and Output 07/10/18 07/11/18 18:59 06:59 Intake Total 650 ml 240 ml Output Total 700 ml Balance 650 ml -460 ml Intake Oral 500 ml 240 ml IV Total 150 ml Output Urine Total 700 ml # Voids 8 5 # Bowel Movements 15 General Appearance: no acute distress HEENT: normocephalic Respiratory/Chest: chest wall non-tender, lungs clear Cardiovascular: normal peripheral pulses, normal rate Abdomen: normal bowel sounds Laboratory Tests 07/10/18 14:05: White Blood Count 7.8, Red Blood Count 3.67L, Hemoglobin 10.4L, Hematocrit 31.7L , Mean Corpuscular Volume 86, Mean Corpuscular Hemoglobin 28.4, Mean Corpuscular Hemoglobin Concent 33.0, Red Cell Distribution Width 13.6, Platelet Count 266, Mean Platelet Volume 6.4L, Neutrophils (%) (Auto) 76.7H, Lymphocytes (%) (Auto) 12.0L, Monocytes (%) (Auto) 8.8, Eosinophils (%) (Auto) 1.7, Basophils (%) (Auto) 0.7 07/11/18 03:05: White Blood Count 7.9, Red Blood Count 3.46L, Hemoglobin 10.0L, Hematocrit 29.7L , Mean Corpuscular Volume 86, Mean Corpuscular Hemoglobin 28.9, Mean Corpuscular Hemoglobin Concent 33.6, Red Cell Distribution Width 13.5, Platelet Count 230, Mean Platelet Volume 5.8L, Neutrophils (%) (Auto) 78.0H, Lymphocytes (%) (Auto) 12.0L, Monocytes (%) (Auto) 7.8, Eosinophils (%) (Auto) 1.7, Basophils (%) (Auto) 0.5, Sodium Level 139, Potassium Level 3.3L, Chloride Level 106, Carbon Dioxide Level 23, Anion Gap 10, Blood Urea Nitrogen 34H, Creatinine 3.5H, Estimat Glomerular Filtration Rate 15.9, Glucose Level 95, Calcium Level 8.4L Current Medications Medications (Trade) Dose Ordered Sig/Robin Route PRN Reason Start Time Stop Time Status Last Admin Dose Admin Acetaminophen (Tylenol) 650 mg Q6H PRN ORAL Mild Pain/Temp > 100.5 07/09/18 13:48 08/08/18 13:47 07/10/18 13:43 Amlodipine Besylate (Norvasc) 10 mg DAILY ORAL 07/10/18 09:00 08/07/18 17:59 07/11/18 09:19 Atorvastatin Calcium (Lipitor) 80 mg BEDTIME ORAL 07/09/18 21:00 08/07/18 20:59 07/10/18 21:11 Carvedilol (Coreg) 12.5 mg EVERY 12 HOURS ORAL 07/09/18 21:00 08/07/18 17:59 07/11/18 09:19 Clonidine HCl (Catapres Tab) 0.1 mg Q6HR PRN ORAL For High Blood Pressure 07/10/18 00:40 08/09/18 00:39 07/10/18 01:04 Dextrose (Dextrose 50%) 25 ml Q30M PRN IV Hypoglycemia 07/09/18 13:49 08/07/18 13:48 Dextrose (Dextrose 50%) 50 ml Q30M PRN IV Hypoglycemia 07/09/18 13:49 08/07/18 13:48 Furosemide (Lasix) 40 mg EVERY 12 HOURS IV 07/09/18 21:00 07/12/18 21:00 07/11/18 09:18 Gabapentin (Neurontin) 300 mg THREE TIMES A DAY ORAL 07/09/18 18:00 08/08/18 12:59 07/11/18 09:19 Insulin Aspart (NovoLOG) BEFORE MEALS AND HS SUBQ 07/09/18 16:30 08/07/18 20:59 07/11/18 12:01 Lisinopril (Prinivil) 20 mg DAILY ORAL 07/10/18 09:00 08/08/18 08:59 07/11/18 09:19 Nitroglycerin (Ntg) 0.4 mg Q5M PRN SL Prn Chest Pain 07/09/18 13:45 08/07/18 17:44 07/10/18 21:58 Pantoprazole (Protonix) 40 mg EVERY 12 HOURS IVP 07/10/18 00:05 08/09/18 00:04 07/11/18 09:18 Luan Gomez MD Jul 11, 2018 12:59
[2018-07-11] MEDS ORDERED: Tubing IV Secondary IV ONE (16:43)
--- NOTE | 2018-07-11 19:25 | General Progress Note ---
Assessment/Plan Assessment/Plan Assessment - No melena - stools brown - anemia, but OB (-) stools - CHF - CAD - NSTMI - HTN - Hyperlipidemia - DM - GERD - DLE - CRI Recommendations - colonoscopy cancelled - cardiac diet - OK to anticoagulate - Cardiology f/u - PPI - Serial CBC - Transfuse PRN - Guarded Subjective Allergies: Coded Allergies: SULFA (SULFONAMIDE ANTIBIOTICS) (Unverified Allergy, Unknown, 07/08/18) Uncoded Allergies: SULFA (Allergy, Unknown, 07/08/18) Subjective Feels OK no abdominal complaints tolerating PO Objective Last 24 Hour Vital Signs Date Time Temp Pulse Resp B/P (MAP) Pulse Ox O2 Delivery O2 Flow Rate FiO2 07/11/18 16:00 66 07/11/18 16:00 Nasal Cannula 2.0 07/11/18 12:05 Nasal Cannula 2.0 07/11/18 12:00 68 07/11/18 09:19 139/69 07/11/18 09:19 72 139/69 07/11/18 09:19 72 139/69 07/11/18 09:00 97.9 63 21 154/64 (94) 95 07/11/18 08:15 96 Nasal Cannula 2.0 28 07/11/18 08:15 72 18 Nasal Cannula 2.0 07/11/18 08:15 Nasal Cannula 2.0 28 07/11/18 08:00 Nasal Cannula 2.0 07/11/18 08:00 97.9 69 21 139/69 (92) 07/11/18 08:00 67 07/11/18 04:00 65 07/11/18 04:00 Nasal Cannula 2.0 07/11/18 00:00 Nasal Cannula 2.0 07/11/18 00:00 69 07/10/18 21:58 151/69 07/10/18 21:11 70 155/67 07/10/18 21:00 97.7 70 18 155/67 (96) 95 07/10/18 20:00 69 07/10/18 20:00 Nasal Cannula 2.0 28 07/10/18 20:00 69 18 Nasal Cannula 2.0 28 07/10/18 20:00 97 Nasal Cannula 2.0 28 07/10/18 20:00 Nasal Cannula 2.0 Intake and Output 07/10/18 07/11/18 19:00 07:00 Intake Total 650 ml 240 ml Output Total 700 ml Balance 650 ml -460 ml Intake Oral 500 ml 240 ml IV Total 150 ml Output Urine Total 700 ml # Voids 8 5 # Bowel Movements 15 Laboratory Tests 07/11/18 03:05: White Blood Count 7.9, Red Blood Count 3.46L, Hemoglobin 10.0L, Hematocrit 29.7L , Mean Corpuscular Volume 86, Mean Corpuscular Hemoglobin 28.9, Mean Corpuscular Hemoglobin Concent 33.6, Red Cell Distribution Width 13.5, Platelet Count 230, Mean Platelet Volume 5.8L, Neutrophils (%) (Auto) 78.0H, Lymphocytes (%) (Auto) 12.0L, Monocytes (%) (Auto) 7.8, Eosinophils (%) (Auto) 1.7, Basophils (%) (Auto) 0.5, Sodium Level 139, Potassium Level 3.3L, Chloride Level 106, Carbon Dioxide Level 23, Anion Gap 10, Blood Urea Nitrogen 34H, Creatinine 3.5H, Estimat Glomerular Filtration Rate 15.9, Glucose Level 95, Calcium Level 8.4L Height (Feet): 5 Height (Inches): 1.00 Weight (Pounds): 165 Objective WDWN AA woman NCAT supple CTA RR abd soft no edema Sam Lopez MD Jul 11, 2018 19:25
[2018-07-11 20:00] VITALS: BP 130/60
[2018-07-11] MEDS: Atorvastatin 80mg tab ORAL SCH (20:15)
[2018-07-11] MEDS ORDERED: Nitroglycerin Subl 0.4mg tab SL PRN (21:30)
--- NOTE | 2018-07-11 21:42 | Cardiology Progress Note ---
Assessment/Plan Assessment/Plan 1. Congestive heart failure, diastolic 2. Chest pain. 3. [id number] myocardial infarction. 4. Hypertension. 5. Chronic renal insufficiency. 6. Coronary disease, status post two prior stents. 7. Diabetes mellitus. 8. Hyperlipidemia. 9. Diabetic neuropathy. 10. Gastroesophageal reflux disease. 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 12. Rheumatoid arthritis 13. anemia 14. possible gi bleed echo showed adequate ef with some puilm htn trop radha down trend s/p 2 unite of prbc tx stool ob no pland for colonoscopy d/w pt and dtr she declines cardiac cath i have explained possibility of alrger mi with risk of sob and otther complicaion of even if a large vessel disease is not identified or treated she indicated understanding and still does not wich to have cath done is on bb: coreg and isordil hydralazien adn acei will need to be on lasix 40-80 mg po daily if not desire cath then no need for further hospitalization still feels the same not want to have cath will be going home tomorrow Subjective Cardiovascular: Denies: chest pain, lightheadedness, palpitations Respiratory: Denies: shortness of breath Gastrointestinal/Abdominal: Denies: abdominal pain Genitourinary: Denies: burning Objective Last 24 Hour Vital Signs Date Time Temp Pulse Resp B/P (MAP) Pulse Ox O2 Delivery O2 Flow Rate FiO2 07/11/18 20:15 74 130/66 07/11/18 20:00 70 07/11/18 20:00 Nasal Cannula 2.0 07/11/18 20:00 98.4 70 20 130/60 (83) 95 07/11/18 19:50 66 18 Nasal Cannula 2.0 07/11/18 19:50 Nasal Cannula 2.0 28 07/11/18 19:50 95 Nasal Cannula 2.0 28 07/11/18 16:00 66 07/11/18 16:00 Nasal Cannula 2.0 07/11/18 12:05 Nasal Cannula 2.0 07/11/18 12:00 68 07/11/18 09:19 139/69 07/11/18 09:19 72 139/69 07/11/18 09:19 72 139/69 07/11/18 09:00 97.9 63 21 154/64 (94) 95 07/11/18 08:15 96 Nasal Cannula 2.0 28 07/11/18 08:15 72 18 Nasal Cannula 2.0 07/11/18 08:15 Nasal Cannula 2.0 07/11/18 08:00 Nasal Cannula 2.0 07/11/18 08:00 97.9 69 21 139/69 (92) 07/11/18 08:00 67 07/11/18 04:00 65 07/11/18 04:00 Nasal Cannula 2.0 07/11/18 00:00 Nasal Cannula 2.0 07/11/18 00:00 69 07/10/18 21:58 151/69 General Appearance: alert Neck: supple Cardiovascular: normal rate, regular rhythm Respiratory/Chest: lungs clear Abdomen: normal bowel sounds, non tender, soft Extremities: no swelling Intake and Output 07/10/18 07/11/18 19:00 07:00 Intake Total 650 ml 240 ml Output Total 700 ml Balance 650 ml -460 ml Intake Oral 500 ml 240 ml IV Total 150 ml Output Urine Total 700 ml # Voids 8 5 # Bowel Movements 15 Laboratory Tests Test 07/11/18 03:05 White Blood Count 7.9 K/UL (4.8-10.8) Red Blood Count 3.46 M/UL (4.20-5.40) L Hemoglobin 10.0 G/DL (12.0-16.0) L Hematocrit 29.7 % (37.0-47.0) L Mean Corpuscular Volume 86 FL (80-99) Mean Corpuscular Hemoglobin 28.9 PG (27.0-31.0) Mean Corpuscular Hemoglobin Concent 33.6 G/DL (32.0-36.0) Red Cell Distribution Width 13.5 % (11.6-14.8) Platelet Count 230 K/UL (150-450) Mean Platelet Volume 5.8 FL (6.5-10.1) L Neutrophils (%) (Auto) 78.0 % (45.0-75.0) H Lymphocytes (%) (Auto) 12.0 % (20.0-45.0) L Monocytes (%) (Auto) 7.8 % (1.0-10.0) Eosinophils (%) (Auto) 1.7 % (0.0-3.0) Basophils (%) (Auto) 0.5 % (0.0-2.0) Sodium Level 139 MMOL/L (136-145) Potassium Level 3.3 MMOL/L (3.5-5.1) L Chloride Level 106 MMOL/L (98-107) Carbon Dioxide Level 23 MMOL/L (21-32) Anion Gap 10 mmol/L (5-15) Blood Urea Nitrogen 34 mg/dL (7-18) H Creatinine 3.5 MG/DL (0.55-1.30) H Estimat Glomerular Filtration Rate 15.9 mL/min (>60) Glucose Level 95 MG/DL (74-106) Calcium Level 8.4 MG/DL (8.5-10.1) L Andres Duffy MD Jul 11, 2018 21:42
[2018-07-12] VITALS: BP 136/62
[2018-07-12] MEDS ORDERED: NovoLOG Insulin Flexpen SUBQ SCH (06:30)
[2018-07-12 08:00] VITALS: BP 148/60
[2018-07-12 08:45] VITALS: BP 148/60
--- NOTE | 2018-07-12 08:45 | Pulmonology Progress Note ---
Assessment/Plan Assessment/Plan IMPRESSION: 1. Pulmonary edema. Resolved; likely due to medication non compliance 2. History of CAD. 3. Troponin leak. 4. Non-STEMI. 5. Anemia and black stools; EGD negative; has brown stools now; Hgb stable DISCUSSION: no longer on BiPAP. Continue oxygen and pulmonary hygiene. GI consultation noted; has negative EGD Seen by cardiology She reports noncompliance with Lasix at home Dc home Subjective Interval Events: Doing well; no new problems; Hg stable Constitutional: Reports: no symptoms HEENT: Repors: no symptoms Respiratory: Reports: no symptoms Cardiovascular: Reports: no symptoms Genitourinary: Reports: no symptoms Neurologic: Reports: no symptoms Psychiatric: Reports: no symptoms Allergies: Coded Allergies: SULFA (SULFONAMIDE ANTIBIOTICS) (Unverified Allergy, Unknown, 07/08/18) Uncoded Allergies: SULFA (Allergy, Unknown, 07/08/18) Objective Last 24 Hour Vital Signs Date Time Temp Pulse Resp B/P (MAP) Pulse Ox O2 Delivery O2 Flow Rate FiO2 07/12/18 08:10 Nasal Cannula 2.0 28 07/12/18 08:10 93 Nasal Cannula 2.0 28 07/12/18 08:00 97.7 67 20 148/60 (89) 91 07/12/18 04:00 64 07/12/18 00:00 97.4 71 18 136/62 (86) 92 07/12/18 00:00 63 07/11/18 20:15 74 130/66 07/11/18 20:00 70 07/11/18 20:00 Nasal Cannula 2.0 07/11/18 20:00 98.4 70 20 130/60 (83) 95 07/11/18 19:50 66 18 Nasal Cannula 2.0 28 07/11/18 19:50 Nasal Cannula 2.0 28 07/11/18 19:50 95 Nasal Cannula 2.0 28 07/11/18 16:00 66 07/11/18 16:00 Nasal Cannula 2.0 07/11/18 12:05 Nasal Cannula 2.0 07/11/18 12:00 68 07/11/18 09:19 139/69 07/11/18 09:19 72 139/69 07/11/18 09:19 72 139/69 07/11/18 09:00 97.9 63 21 154/64 (94) 95 Intake and Output 07/11/18 07/12/18 19:00 07:00 Intake Total 720 ml Output Total 500 ml Balance 220 ml Intake Oral 720 ml Output Urine Total 500 ml # Voids 6 4 General Appearance: no acute distress HEENT: normocephalic Respiratory/Chest: chest wall non-tender, lungs clear Cardiovascular: normal peripheral pulses, normal rate Abdomen: normal bowel sounds Current Medications Medications (Trade) Dose Ordered Sig/Robin Route PRN Reason Start Time Stop Time Status Last Admin Dose Admin Acetaminophen (Tylenol) 650 mg Q6H PRN ORAL Mild Pain/Temp > 100.5 07/11/18 21:30 08/10/18 21:29 Amlodipine Besylate (Norvasc) 10 mg DAILY ORAL 07/12/18 09:00 08/07/18 17:59 Atorvastatin Calcium (Lipitor) 80 mg BEDTIME ORAL 07/12/18 21:00 08/07/18 20:59 Carvedilol (Coreg) 12.5 mg EVERY 12 HOURS ORAL 07/12/18 09:00 08/07/18 17:59 Clonidine HCl (Catapres Tab) 0.1 mg Q6H PRN ORAL For High Blood Pressure 07/11/18 21:30 08/10/18 21:29 Dextrose (Dextrose 50%) 25 ml Q30M PRN IV Hypoglycemia 07/11/18 22:00 08/07/18 13:48 Dextrose (Dextrose 50%) 50 ml Q30M PRN IV Hypoglycemia 07/11/18 22:00 08/07/18 13:48 Furosemide (Lasix) 40 mg EVERY 12 HOURS IV 07/12/18 09:00 07/12/18 21:00 Gabapentin (Neurontin) 300 mg THREE TIMES A DAY ORAL 07/12/18 09:00 08/08/18 12:59 Insulin Aspart (NovoLOG) BEFORE MEALS AND HS SUBQ 07/12/18 06:30 08/07/18 20:59 07/12/18 06:30 Lisinopril (Prinivil) 20 mg DAILY ORAL 07/12/18 09:00 08/08/18 08:59 Nitroglycerin (Ntg) 0.4 mg Q5M PRN SL Prn Chest Pain 07/11/18 21:30 08/07/18 17:44 Pantoprazole (Protonix) 40 mg EVERY 12 HOURS IVP 07/12/18 09:00 08/09/18 00:04 Luan Gomez MD Jul 12, 2018 08:45
[2018-07-12] MEDS ORDERED: Carvedilol 12.5mg tab ORAL SCH (09:00)
[2018-07-12] MEDS ORDERED: Pantoprazole Inj IVP SCH (09:00)
[2018-07-12] MEDS ORDERED: Lisinopril 20mg tab ORAL SCH (09:00)
--- NOTE | 2018-07-12 18:13 | General Progress Note ---
Assessment/Plan Assessment/Plan Assessment - No melena - stools brown - anemia, but OB (-) stools - CHF - CAD - NSTMI - HTN - Hyperlipidemia - DM - GERD - DLE - CRI Recommendations - cardiac diet - OK to anticoagulate - Cardiology f/u - PPI - Serial CBC Subjective Allergies: Coded Allergies: SULFA (SULFONAMIDE ANTIBIOTICS) (Unverified Allergy, Unknown, 07/08/18) Uncoded Allergies: SULFA (Allergy, Unknown, 07/08/18) Subjective Feels OK no abdominal complaints tolerating PO for d/c today Objective Last 24 Hour Vital Signs Date Time Temp Pulse Resp B/P (MAP) Pulse Ox O2 Delivery O2 Flow Rate FiO2 07/12/18 08:45 67 148/60 07/12/18 08:44 148/60 07/12/18 08:44 67 148/60 07/12/18 08:10 Nasal Cannula 2.0 28 07/12/18 08:10 93 Nasal Cannula 2.0 28 07/12/18 08:00 73 07/12/18 08:00 97.7 67 20 148/60 (89) 91 07/12/18 04:00 64 07/12/18 00:00 97.4 71 18 136/62 (86) 92 07/12/18 00:00 63 07/11/18 20:15 74 130/66 07/11/18 20:00 70 07/11/18 20:00 Nasal Cannula 2.0 07/11/18 20:00 98.4 70 20 130/60 (83) 95 07/11/18 19:50 66 18 Nasal Cannula 2.0 28 07/11/18 19:50 Nasal Cannula 2.0 28 07/11/18 19:50 95 Nasal Cannula 2.0 28 Intake and Output 07/11/18 07/12/18 18:59 06:59 Intake Total 720 ml Output Total 500 ml Balance 220 ml Intake Oral 720 ml Output Urine Total 500 ml # Voids 6 4 Height (Feet): 5 Height (Inches): 1.00 Weight (Pounds): 161 Objective WDWN AA woman NCAT supple CTA RR abd soft no edema Sam Lopez MD Jul 12, 2018 18:13
[2018-07-12] MEDS ORDERED: Atorvastatin 80mg tab ORAL SCH (21:00)
--- NOTE | 2018-07-15 08:39 | Discharge Summary ---
Discharge Summary Discharge Summary _ DATE OF ADMISSION: 07/08/2018 DATE OF DISCHARGE: 07/12/2018 REASON FOR ADMISSION: 68 years old female with past medical history of congestive heart failure , diagnosed 2 months ago ( On Lasix, but not complaint), coronary artery disease with history of two prior stents, hypertension, high cholesterol, rheumatoid arthritis, lupus, diabetes mellitus, GERD, chronic renal disease ( not on dialysis yet), presented to emergency department with worsening shortness of breath. She denied cough or congestion. She denied fever and chills. She denied chest pain. Upon evaluation vital signs revealed tachycardia, tachypnea, and patient required placement on 100% nonrebreathing mask with saturation reaching 98%. Laboratory workup revealed WBC 14.5, hemoglobin 7.9 ,hematocrit 24.7. Troponin 1.217 . EKG revealed normal sinus rhythm, no acute ischemic changes. BUN 41 creatinine 2.7 ,glucose 178 . Urinalysis +4 protein . Chest x-ray revealed diffuse patchy opacities. Patient admitted with diagnoses of pulmonary edema, elevated troponin,probably NSTEMI, hypoxemia, anemia, chronic kidney disease. CONSULTANTS: iuss acoustic analyst Dr. Duffy GI specialist Dr. Lopez [facility] COURSE: Patient admitted to telemetry floor. Patient was placed on the BiPAP and started on IV diuretic and heparin drip. Restaurant Front Manager closely follow. Serial troponin and ECG were trending. Troponin reached maximum 3.375 and then started to trend down. ECG revealed no acute ischemic changes. Patient declined cardiac catheterization despite multiply discussion with iuss acoustic analyst , who explained the need for cardiac catheterization and risk associated with avoidance of the procedure. Patient understood but refused the procedure. Echocardiogram revealed ejection fraction of 50-55% and evidence of moderate pulmonary hypertension with right ventricular systolic pressure of 50. No left ventricular hypertrophy. No wall motion abnormality. Patient was on antiplatelet therapy with aspirin. Patient was initially on IV Lasix with close monitoring of volumes and cardiorenal parameters, converted to oral route upon discharge. Nitroglycerin was on board as needed. Patient was on anti-failure regimen with beta ritu and GUILLERMO inhibitor. Statin was continued. Lipid panel revealed elevated triglycerides. Patient educated on low-fat low-cholesterol cardiac diabetic diet. Blood pressure was managed with multiply regimen of calcium channel ritu, beta ritu, GUILLERMO inhibitor and Lasix. GI specialist closely followed for anemia. Hemoglobin 6.8 and hematocrit 20.9 the next day, patient reported black stools. Patient undergone transfusion of 2 units of packed red blood cells. Stool for occult blood was negative. Patient undergone upper endoscopy with incidental finding of 3-4 cm hiatal hernia. Minimal erythema in the lower esophagus ,probably because of the mild reflux. No evidence of ulceration or other lesions to explain gastrointestinal bleeding.. Patient slowly started on clear liquid diet. GI specialist cleared to continue anticoagulation and recommended colonoscopy as outpatient. Stools turned brown, Hemoglobin and hematocrit remained stable . Prior to discharge hemoglobin 10 and hematocrit 29.7. Patient was on BiPAP. ABG initially revealed hypoxemia. As patient clinically Improved, she was able to be weaned to nasal cannula and then to room air. Pulmonary toilet provided as needed. Blood sugar was managed with sliding scale of insulin. GI prophylaxis provided. Bowel regimen instituted. Renal parameters and electrolytes were closely monitored, electrolytes corrected as needed and nephrotoxins were avoided. Creatinine remains at baseline. Patient clinically improved. To reiterate, patient declined cardiac catheterization, Patient was stable for discharge home. Patient was counseled on importance of compliance with medication regimen. FINAL DIAGNOSES: Congestive heart failure , diastolic Pulmonary edema -probably due to noncompliance NSTEMI Hypertension Chronic kidney disease Coronary artery disease , status post two prior stents Diabetes mellitus with diabetic neuropathy Hyperlipidemia Moderate pulmonary hypertension (per echo) Gastroesophageal reflux disease Anemia Discoid lupus Rheumatoid arthritis DISCHARGE MEDICATIONS: See Medication Reconciliation list. DISCHARGE INSTRUCTIONS: Patient was discharged home Follow up with primary care provider in one week. Patient was recommended to have cardiac catheterization if she agrees,. Patient was recommended to have colonoscopy as outpatient. Patient was strongly encouraged to comply with medication regimen. I have been assigned to dictate discharge summary for this account. I was not involved in the patient's management. Bre Licona NP Jul 15, 2018 08:39
== END 2018-07-12 11:26 | disposition home or self-care (01) | DRG 280 ==
LOC: EDSEX 11:31 → EDBD 11:31 → EDBEDREQ 12:50 → EMR 13:15 → EDBEDREQ 14:59 → ICU 15:45 → EDBEDREQSVC 15:53 → EDBEDREQ 15:57 → 2W 07-09 12:33 → 2E 07-11 21:00
PROC: 5A09357 Assistance with Respiratory Ventilation, Less than 24 Consecutive Hours, Continuous Positive Airway Pressure (ICD-10-PCS; 2018-07-08)
PROC: 30233N1 Transfusion of Nonautologous Red Blood Cells into Peripheral Vein, Percutaneous Approach (ICD-10-PCS; 2018-07-09)
PROC: 0DJ08ZZ Inspection of Upper Intestinal Tract, Via Natural or Artificial Opening Endoscopic (ICD-10-PCS; principal; 2018-07-10 07:57)
DX: I13.2 Hypertensive heart and chronic kidney disease with heart failure and with stage 5 chronic kidney disease, or end stage renal disease (principal); I21.4 Non-ST elevation (NSTEMI) myocardial infarction; N18.6 End stage renal disease; I50.33 Acute on chronic diastolic (congestive) heart failure; I50.30 Unspecified diastolic (congestive) heart failure; K92.2 Gastrointestinal hemorrhage, unspecified; Z99.2 Dependence on renal dialysis; E11.22 Type 2 diabetes mellitus with diabetic chronic kidney disease; R07.9 Chest pain, unspecified; N18.9 Chronic kidney disease, unspecified; Z91.19 Patient's noncompliance with other medical treatment and regimen; I25.10 Atherosclerotic heart disease of native coronary artery without angina pectoris; Z95.5 Presence of coronary angioplasty implant and graft; K21.9 Gastro-esophageal reflux disease without esophagitis; E11.40 Type 2 diabetes mellitus with diabetic neuropathy, unspecified; E78.5 Hyperlipidemia, unspecified; I27.20 Pulmonary hypertension, unspecified; D64.9 Anemia, unspecified; M06.9 Rheumatoid arthritis, unspecified; L93.0 Discoid lupus erythematosus; K44.9 Diaphragmatic hernia without obstruction or gangrene; Z88.2 Allergy status to sulfonamides; Z79.4 Long term (current) use of insulin
CPT/HCPCS: 36415; 36600; 71045; 80048; 80053; 80061; 81003; 82270; 82550; 82553; 82803; 82962; 83540; 83880; 84484; 85007; 85025; 85610; 85730; 86850; 86900; 86901; 86920; 87040; 93005; 93306; 93970; 94003; 94150; 94640; 94660; 94664; 94760; 96365; 96375; 99291; J1815; J8499